=== PATIENT | female | born 1980 | race Caucasian/White ===

== ENCOUNTER 2016-11-22 13:45 | Emergency (ER) | payer OTHER ==
[~2016-11-22] VITALS: Ht 167.6 cm; Wt 135.5 kg
[2016-11-22] MEDS ORDERED: LORA10CA PO (14:05)
[2016-11-22] MEDS ORDERED: MULT1CHW26 PO (14:05)
[2016-11-22] MEDS ORDERED: IRON65TA PO (14:05)
[2016-11-22] MEDS ORDERED: TOPI200T7 PO (14:05)
[2016-11-22] MEDS ORDERED: GABA-283 PO (14:05)
[2016-11-22] MEDS ORDERED: OMEP40CA2 PO (14:05)
[2016-11-22] MEDS ORDERED: LISI10TA4 PO (14:05)
[2016-11-22] MEDS ORDERED: FLUO20CA8 PO (14:05)
[2016-11-22] MEDS ORDERED: MELO15TA4 PO (14:05)
[2016-11-22] MEDS ORDERED: BACL1TAB9 PO (14:05)
[2016-11-22] MEDS ORDERED: RANI15TA PO (14:05)
[2016-11-22] MEDS ORDERED: LEVO88TA3 PO (14:05)
[2016-11-22] MEDS ORDERED: ZYPR10TA PO (14:05)
[2016-11-22 15:29] LABS: BASO % 0.3 % (0.0-1.0); EOS # 0.5 K/mm3 (0.0-0.50); LARGE UNSTAINED CELL # 0.2 K/mm3 (0.0-0.4); LARGE UNSTAINED CELL % 1.5 % (0.0-4.0); LYMPH # 2.4 K/mm3 (1.5-4.5); LYMPH % 18.4 % (24.0-44.0); MEAN CORPUSCULAR HEMOGLOBIN 30.2 pg (27.0-33.0); MEAN CORPUSCULAR VOLUME 88.9 fl (80.0-96.0); MONO # 0.7 K/mm3 (0.0-0.8); MONO % 5.8 % (0.0-5.0); NEUTROPHILS # 8.3 K/mm3 (1.8-7.7); NEUTROPHILS % 69.9 % (36.0-66.0); PLATELET COUNT, AUTOMATED 228 k/mm3 (150-450); RED CELL DISTRIBUTION WIDTH 14.6 % (11.5-14.5); WHITE BLOOD COUNT 11.9 K/mm3 (4.0-10.0)
[2016-11-22 16:02] LABS: CONTROL LINE MONO INT CTR LINE PRESENT
[2016-11-22] MEDS ORDERED: AMOX500C PO (16:25)
[2016-11-22] MEDS ORDERED: CEPA5.4L2 MT (16:25)
[2016-11-22] MEDS ORDERED: AMOXICILLIN 500 MG CAP PO ONE (16:30)
[2016-11-22 16:35] VITALS: BP 143/98
== END 2016-11-22 16:35 | disposition home or self-care (01) ==
LOC: M ED 13:45
DX: J02.9 Acute pharyngitis, unspecified (principal)

== ENCOUNTER → 2018-09-02 | Outpatient (REF) | payer OTHER ==
[~2018-09-02] MED LIST: AMOX500C PO; BACL1TAB9 PO; CEPA5.4L2 MT; FLUO20CA8 PO; GABA-845 PO; IRON65TA PO; LEVO88TA3 PO; LISI10TA4 PO; LORA10CA PO; MELO15TA28 PO; MULT1CHW26 PO; OMEP40CA2 PO; RANI15TA PO; TOPI200T7 PO; ZYPR10TA PO
[2018-09-02 11:33] LABS: BASO # 0.1 10^3/uL (0.0-0.2); BASO % 0.7 % (0.0-1.0); EOS # 0.7 10^3/uL (0.0-0.50); EOS % 8.2 % (0.0-3.0); HEMOGLOBIN 9.9 g/dl (12.0-15.5); LYMPH # 2.1 10^3/uL (1.5-4.5); LYMPH % 25.1 % (24.0-44.0); MEAN CORPUSCULAR HEMOGLOBIN 19.8 pg (27.0-33.0); MEAN CORPUSCULAR HGB CONC 27.5 g/dl (32.0-36.5); MEAN CORPUSCULAR VOLUME 72.1 fl (80.0-96.0); MONO # 0.8 10^3/uL (0.0-0.8); NEUTROPHILS # 4.8 10^3/uL (1.8-7.7); NEUTROPHILS % 56.8 % (36.0-66.0); PLATELET COUNT, AUTOMATED 317 10^3/uL (150-450); RED BLOOD COUNT 4.99 10^6/uL (4.00-5.40); WHITE BLOOD COUNT 8.5 10^3/uL (4.0-10.0)
[2018-09-02 11:55] LABS: ALBUMIN 3.6 GM/DL (3.2-5.2); ALT/SGPT 35 U/L (12-78); BILIRUBIN,TOTAL 0.3 MG/DL (0.2-1.0); BLOOD UREA NITROGEN 12 MG/DL (7-18); CALCIUM LEVEL 8.4 MG/DL (8.5-10.1); CARBON DIOXIDE LEVEL 22 MEQ/L (21-32); CHLORIDE LEVEL 106 MEQ/L (98-107); CHOLESTEROL LEVEL 156 MG/DL (<200); CHOLESTEROL RISK RATIO 5.379 (<5); FERRITIN 19 NG/ML (8-252); FREE THYROXINE INDEX 2.7 % (1.3-4.8); GLOMERULAR FILTRATION RATE > 60.0 (>58); GLUCOSE, FASTING 76 MG/DL (70-100); HDL CHOLESTEROL 29 MG/DL (>40); IRON (FE) 27 UG/DL (50-170); LDL CHOLESTEROL 86.4 MG/DL (<100); NON-HDL-C 127 MG/DL; POTASSIUM SERUM 3.8 MEQ/L (3.5-5.1); SODIUM LEVEL 139 MEQ/L (136-145); T UPTAKE 32 % (30-39); THYROXINE (T4) 8.3 UG/DL (4.5-12.0); TOTAL IRON BINDING CAPACITY 299 UG/DL (250-450); TOTAL PROTEIN 7.7 GM/DL (6.4-8.2); TRIGLYCERIDES LEVEL 203 MG/DL (<150)
[2018-09-02 12:00] LABS: TOTAL 25(OH) VITAMIN D 18.4 NG/ML (30.0-100.0)
== END ==
LOC: M SFHCCLAY 08:48
PROVIDERS: ATTEND Nurse Practitioner Family
DX: D64.9 Anemia, unspecified (principal); I10 Essential (primary) hypertension; R25.2 Cramp and spasm; E03.9 Hypothyroidism, unspecified

== ENCOUNTER → 2018-09-13 | Outpatient (REF) | payer OTHER ==
[~2018-09-13] MED LIST changes: +FERR325T3; +QUET5TAB
[2018-09-13 13:40] LABS: BASO # 0.1 10^3/uL (0.0-0.2); BASO % 0.7 % (0.0-1.0); EOS # 0.7 10^3/uL (0.0-0.50); EOS % 9.5 % (0.0-3.0); HEMATOCRIT 40.5 % (36.0-47.0); HEMOGLOBIN 11.1 g/dl (12.0-15.5); LYMPH # 1.7 10^3/uL (1.5-4.5); LYMPH % 22.7 % (24.0-44.0); MEAN CORPUSCULAR HEMOGLOBIN 21.1 pg (27.0-33.0); MEAN CORPUSCULAR HGB CONC 27.4 g/dl (32.0-36.5); MONO # 0.6 10^3/uL (0.0-0.8); MONO % 8.1 % (0.0-5.0); NEUTROPHILS # 4.4 10^3/uL (1.8-7.7); NEUTROPHILS % 58.7 % (36.0-66.0); PLATELET COUNT, AUTOMATED 253 10^3/uL (150-450); RED BLOOD COUNT 5.26 10^6/uL (4.00-5.40); WHITE BLOOD COUNT 7.4 10^3/uL (4.0-10.0)
[2018-09-13 13:49] LABS: ALBUMIN 3.5 GM/DL (3.2-5.2); ALT/SGPT 27 U/L (12-78); BILIRUBIN,TOTAL 0.4 MG/DL (0.2-1.0); BLOOD UREA NITROGEN 11 MG/DL (7-18); CALCIUM LEVEL 8.6 MG/DL (8.5-10.1); CARBON DIOXIDE LEVEL 21 MEQ/L (21-32); CHLORIDE LEVEL 107 MEQ/L (98-107); CREATININE FOR GFR 0.57 MG/DL (0.55-1.30); GLOMERULAR FILTRATION RATE > 60.0 (>58); GLUCOSE, FASTING 81 MG/DL (70-100); POTASSIUM SERUM 3.8 MEQ/L (3.5-5.1); RHEUMATOID FACTOR QUANT < 10.0 IU/ML (<15.0); SODIUM LEVEL 140 MEQ/L (136-145); TOTAL 25(OH) VITAMIN D 23.5 NG/ML (30.0-100.0); TOTAL PROTEIN 7.6 GM/DL (6.4-8.2)
[2018-09-13 15:01] LABS: ANISOCYTOSIS 3+; POIKILOCYTOSIS 1+; TEAR DROP CELLS 1+
[2018-09-13 15:02] LABS: MICROCYTOSIS 1+; OVALOCYTES 1+
[2018-09-13 15:06] LABS: PLATELET ESTIMATE NORMAL (NORMAL)
[2018-09-13 19:47] LABS: ERYTHROCYTE SEDIMENTATION RATE 15 mm/hr (0-20)
[2018-09-14 14:11] LABS: ANTINUCLEAR ANTIBODIES DIRECT Negative (Negative)
== END ==
LOC: M LABDRAWC 09-12 11:38
PROVIDERS: ATTEND Psychiatry & Neurology Neurology
DX: R51 Headache (principal)

== ENCOUNTER 2018-09-28 17:13 | Emergency (ER) | payer OTHER ==
[~2018-09-28] VITALS: Ht 167.6 cm; Wt 126.9 kg
[~2018-09-28 17:13] MED LIST changes: -FERR325T3; -QUET5TAB
[2018-09-28] MEDS ORDERED: CHARCOAL ACTIVATED LIQUID 25 GM/120 ML BTL PO ONE (17:30)
[2018-09-28] MEDS ORDERED: NS 1,000 ML IV SCH (17:30)
[2018-09-28 17:38] LABS: VENOUS BASE EXCESS -7.7 (-2.0-2.0); VENOUS O2 SATURATION 73.8 % (60.0-80.0); VENOUS PARTIAL PRESSURE CO2 37.2 mmHg (38.0-50.0); VENOUS PARTIAL PRESSURE O2 45.5 mmHg (30.0-50.0); VENOUS PH 7.302 UNITS (7.330-7.430); VENOUS STANDARD HCO3 17.8 MEQ/L; VENOUS TOTAL CO2 19.1 MEQ/L (24.0-28.0)
[2018-09-28 17:39] LABS: BASO # 0.1 10^3/uL (0.0-0.2); BASO % 0.6 % (0.0-1.0); EOS # 0.5 10^3/uL (0.0-0.50); EOS % 5.7 % (0.0-3.0); HEMATOCRIT 40.1 % (36.0-47.0); LYMPH % 22.1 % (24.0-44.0); MEAN CORPUSCULAR HEMOGLOBIN 24.1 pg (27.0-33.0); MEAN CORPUSCULAR HGB CONC 29.9 g/dl (32.0-36.5); MEAN CORPUSCULAR VOLUME 80.7 fl (80.0-96.0); MONO # 0.7 10^3/uL (0.0-0.8); MONO % 7.8 % (0.0-5.0); NEUTROPHILS # 5.6 10^3/uL (1.8-7.7); NEUTROPHILS % 63.5 % (36.0-66.0); PLATELET COUNT, AUTOMATED 200 10^3/uL (150-450); RED BLOOD COUNT 4.97 10^6/uL (4.00-5.40); WHITE BLOOD COUNT 8.8 10^3/uL (4.0-10.0)
[2018-09-28 18:13] LABS: ACETAMINOPHEN LEVEL 51.7 UG/ML (10.0-30.0); ALBUMIN 3.7 GM/DL (3.2-5.2); ALT/SGPT 30 U/L (12-78); BILIRUBIN,DIRECT 0.1 MG/DL (0.0-0.2); BILIRUBIN,TOTAL 0.3 MG/DL (0.2-1.0); BLOOD UREA NITROGEN 9 MG/DL (7-18); CALCIUM LEVEL 8.6 MG/DL (8.5-10.1); CARBON DIOXIDE LEVEL 21 MEQ/L (21-32); CHLORIDE LEVEL 107 MEQ/L (98-107); CPK CREATINE PHOSPHOKINASE 128 U/L (26-192); CREATININE FOR GFR 0.62 MG/DL (0.55-1.30); ETHYL ALCOHOL (ETHANOL) < 0.003 % (0.000-0.010); GLOMERULAR FILTRATION RATE > 60.0 (>58); GLUCOSE, FASTING 77 MG/DL (70-100); POTASSIUM SERUM 3.6 MEQ/L (3.5-5.1); SALICYLATE LEVEL < 1.7 MG/DL (5.0-30.0); SODIUM LEVEL 141 MEQ/L (136-145); TOTAL PROTEIN 7.1 GM/DL (6.4-8.2)
[2018-09-28] MEDS ORDERED: FERR325T3 (18:19)
[2018-09-28] MEDS ORDERED: QUET5TAB (18:19)
[2018-09-28] MEDS ORDERED: NS 1,000 ML IV ONE (18:30)
[2018-09-28 18:45] LABS: AMPHETAMINES LEVEL URINE NEGATIVE (NEGATIVE); BARBITURATES URINE NEGATIVE (NEGATIVE); BENZODIAZEPINES URINE NEGATIVE (NEGATIVE); CANNABINOIDS URINE NEGATIVE (NEGATIVE); COCAINE METABOLITE URINE NEGATIVE (NEGATIVE); METHADONE URINE NEGATIVE (NEGATIVE); OPIATES URINE POSITIVE (NEGATIVE); PHENCYCLIDINE URINE NEGATIVE (NEGATIVE)
[2018-09-28] MEDS ORDERED: ACETYLCYSTEINE 15,000 MG in D5W 250 ML IV ONE (19:00)
[2018-09-28] MEDS ORDERED: ACETYLCYSTEINE 5,000 MG in D5W 500 ML IV ONE (20:00)
[2018-09-28] MEDS ORDERED: LORazepam 1 MG TAB PO ONE (22:30)
[2018-09-29 05:59] VITALS: BP 134/71
--- NOTE | 2018-09-29 07:25 | ECGEPIP ---
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
== END 2018-09-29 07:36 | disposition short-term general hospital (02) ==
LOC: M ED 17:13 → EDBD 17:13 → M ED 09-29 07:36
DX: F33.9 Major depressive disorder, recurrent, unspecified (principal); R45.851 Suicidal ideations; T50.992A Poisoning by other drugs, medicaments and biological substances, intentional self-harm, initial encounter; X58.XXXA Exposure to other specified factors, initial encounter; Y92.89 Other specified places as the place of occurrence of the external cause; I10 Essential (primary) hypertension; G43.909 Migraine, unspecified, not intractable, without status migrainosus; D64.9 Anemia, unspecified; K21.9 Gastro-esophageal reflux disease without esophagitis; F41.9 Anxiety disorder, unspecified; Z79.899 Other long term (current) drug therapy
CPT/HCPCS: 36415; 80048; 80076; 80307; 82550; 82803; 84443; 85025; 93005; 93041; 96361; 96365; 96366; 99285; G0480; J0132

== ENCOUNTER → 2018-10-11 | Outpatient (REF) | payer OTHER ==
[~2018-10-11] MED LIST changes: +FERR325T3; +QUET5TAB
[2018-10-11 17:06] LABS: ALBUMIN 3.5 GM/DL (3.2-5.2); ALT/SGPT 59 U/L (12-78); BILIRUBIN,DIRECT < 0.1 MG/DL (0.0-0.2); BILIRUBIN,TOTAL < 0.1 MG/DL (0.2-1.0); IRON (FE) 33 UG/DL (50-170); PERCENT SATURATION 11.1 % (13.2-45.0); TOTAL IRON BINDING CAPACITY 296 UG/DL (250-450); TOTAL PROTEIN 7.3 GM/DL (6.4-8.2)
[2018-10-11 17:47] LABS: HEMOGLOBIN 12.3 g/dl (12.0-15.5); MEAN CORPUSCULAR HEMOGLOBIN 25.4 pg (27.0-33.0); MEAN CORPUSCULAR VOLUME 84.7 fl (80.0-96.0); PLATELET COUNT, AUTOMATED 242 10^3/uL (150-450); RED BLOOD COUNT 4.84 10^6/uL (4.00-5.40)
== END ==
LOC: M SFHCCLAY 11:49
PROVIDERS: ATTEND Family Medicine
DX: D50.9 Iron deficiency anemia, unspecified (principal); T39.1X2D Poisoning by 4-Aminophenol derivatives, intentional self-harm, subsequent encounter

== ENCOUNTER 2018-10-25 11:31 | Inpatient (IN) | payer OTHER ==
[~2018-10-25] VITALS: Ht 167.6 cm; Wt 126.9 kg
[~2018-10-25 11:31] MED LIST changes: -FERR325T3; +FERR325T3 PO
[2018-10-25] MEDS ORDERED: VITA500045 PO (12:19)
[2018-10-25] MEDS ORDERED: PRAZ1CAP PO (12:19)
[2018-10-25] MEDS ORDERED: ZONI50CA3 PO (12:19)
[2018-10-25] MEDS ORDERED: ARIP1TAB6 PO (12:19)
[2018-10-25 13:06] LABS: HEMATOCRIT 41.1 % (36.0-47.0); HEMOGLOBIN 13.1 g/dl (12.0-15.5); MEAN CORPUSCULAR HEMOGLOBIN 26.4 pg (27.0-33.0); MEAN CORPUSCULAR HGB CONC 31.9 g/dl (32.0-36.5); MEAN CORPUSCULAR VOLUME 82.9 fl (80.0-96.0); PLATELET COUNT, AUTOMATED 232 10^3/uL (150-450); RED BLOOD COUNT 4.96 10^6/uL (4.00-5.40); WHITE BLOOD COUNT 11.1 10^3/uL (4.0-10.0)
[2018-10-25 13:36] LABS: AMPHETAMINES LEVEL URINE NEGATIVE (NEGATIVE); BARBITURATES URINE NEGATIVE (NEGATIVE); BENZODIAZEPINES URINE NEGATIVE (NEGATIVE); CANNABINOIDS URINE NEGATIVE (NEGATIVE); COCAINE METABOLITE URINE NEGATIVE (NEGATIVE); METHADONE URINE NEGATIVE (NEGATIVE); OPIATES URINE NEGATIVE (NEGATIVE); PHENCYCLIDINE URINE NEGATIVE (NEGATIVE)
[2018-10-25 13:44] LABS: HCG, SERUM QUALITATIVE NEGATIVE (NEGATIVE)
[2018-10-25 13:45] LABS: ALBUMIN 3.6 GM/DL (3.2-5.2); ALT/SGPT 42 U/L (12-78); BILIRUBIN,DIRECT 0.1 MG/DL (0.0-0.2); BILIRUBIN,TOTAL 0.2 MG/DL (0.2-1.0); BLOOD UREA NITROGEN 18 MG/DL (7-18); CARBON DIOXIDE LEVEL 24 MEQ/L (21-32); CHLORIDE LEVEL 107 MEQ/L (98-107); CREATININE FOR GFR 0.65 MG/DL (0.55-1.30); ETHYL ALCOHOL (ETHANOL) < 0.003 % (0.000-0.010); GLOMERULAR FILTRATION RATE > 60.0 (>58); GLUCOSE, FASTING 88 MG/DL (70-100); POTASSIUM SERUM 3.7 MEQ/L (3.5-5.1); SALICYLATE LEVEL < 1.7 MG/DL (5.0-30.0); SODIUM LEVEL 140 MEQ/L (136-145); TOTAL PROTEIN 7.7 GM/DL (6.4-8.2)
[2018-10-25 13:46] LABS: ACETAMINOPHEN LEVEL < 2.0 UG/ML (10.0-30.0)
[2018-10-25] MEDS ORDERED: TOPI50TA9 PO (15:18)
[2018-10-25] MEDS ORDERED: LISI-538 PO (15:18)
[2018-10-25] MEDS ORDERED: QUET1TAB7 PO (15:18)
[2018-10-25] MEDS ORDERED: HYDR2.5C TOP (15:19)
[2018-10-25] MEDS ORDERED: FLON1SPR (15:19)
[2018-10-25] MEDS ORDERED: OYST500T10 PO (15:19)
[2018-10-25] MEDS ORDERED: ZONI25CA2 PO (15:19)
[2018-10-25] MEDS ORDERED: LORA-674 PO (15:19)
[2018-10-25] MEDS ORDERED: KETO2SHA9 TOP (15:19)
[2018-10-25] MEDS ORDERED: ESCI20TA PO (15:19)
[2018-10-25] MEDS ORDERED: OLANZapine ORAL DISINTEGRATING TAB 5MG PO PRN (17:00)
[2018-10-25] MEDS ORDERED: MAALOX 30 ML SUSP *UDC PO PRN (17:00)
[2018-10-25] MEDS ORDERED: MOM 30ML SUSPENSION UDC PO PRN (17:00)
[2018-10-25 17:56] VITALS: BP 146/75
[2018-10-25] MEDS: OMEPRAZOLE 20 MG CAP PO SCH (20:50)
[2018-10-25] MEDS: FERROUS SULFATE 325MG TAB PO SCH (20:50)
[2018-10-25] MEDS: GABAPENTIN 400 MG CAP PO SCH (20:51)
[2018-10-25] MEDS: QUEtiapine FUMARATE 50 MG TAB PO SCH (20:51)
[2018-10-25] MEDS: NYSTATIN OINTMENT 15 GM TOP SCH (21:00)
[2018-10-25] MEDS ORDERED: FLUTICASONE PROP 0.05% NASAL SPRAY 16 GM (FLONASE) NARES SCH (21:00)
[2018-10-25] MEDS ORDERED: TOPIRAMATE (TopAMAX) 100 MG TAB PO SCH (21:00)
[2018-10-25] MEDS ORDERED: PRAZOSIN 1 MG CAP PO SCH (21:00)
[2018-10-25] MEDS ORDERED: LISINOPRIL 20 MG TAB PO SCH (21:00)
[2018-10-26] MEDS: LEVOTHYROXINE 88MCG TABLET (0.088 MG) PO SCH (06:00)
[2018-10-26 06:41] VITALS: BP 109/68
[2018-10-26] MEDS: NYSTATIN OINTMENT 15 GM TOP SCH ×2 (08:09→21:00)
[2018-10-26] MEDS: LORATADINE 10 MG TAB PO SCH (08:13)
[2018-10-26] MEDS: GABAPENTIN 400 MG CAP PO SCH ×3 (08:13→21:05)
[2018-10-26] MEDS: FERROUS SULFATE 325MG TAB PO SCH ×3 (08:13→21:05)
[2018-10-26] MEDS: MULTIVITAMINS/MINERALS THERAP 1 TAB PO SCH (08:13)
[2018-10-26] MEDS: OYSTER SHELL CALCIUM 500 MG TAB PO SCH (08:13)
[2018-10-26] MEDS: OMEPRAZOLE 20 MG CAP PO SCH ×2 (08:13→21:05)
[2018-10-26] MEDS: LISINOPRIL 20 MG TAB PO SCH (08:13)
[2018-10-26] MEDS: ESCITALOPRAM OXALATE 10 MG TAB (LEXAPRO) PO SCH (08:14)
[2018-10-26] MEDS: MELOXICAM (MOBIC) 7.5 MG TAB PO SCH (08:14)
[2018-10-26] MEDS ORDERED: VITAMIN D 50,000 UNITS CAPSULE (ERGOCALCIFEROL 1.25MG) PO SCH (09:00)
[2018-10-26] MEDS: FLUTICASONE PROP 0.05% NASAL SPRAY 16 GM (FLONASE) NARES SCH (15:29)
--- NOTE | 2018-10-26 16:28 | HPEPDOC ---
[facility] Medical History & Physical Date of Admission Oct 25, 2018 Date of Service: Oct 26, 2018 History and Physical CHIEF COMPLAINT: Anxiety, panic HISTORY OF PRESENT ILLNESS: This is a 38-year-old female who has had escalating anxiety. She apparently had a severe panic episode as a result and has been ad mitted to the mental health unit. PAST MEDICAL HISTORY: Migraine headaches, chronic back pain, degenerative disc disease with sciatica, esophageal reflux disease, hypothyroidism, iron deficiency anemia, hypertension, depression with anxiety features, irregular menses PAST SURGICAL HISTORY: Cholecystectomy, carpal tunnel decompression to the right hand SOCIAL HISTORY: She denies any history of alcohol or tobacco consumption. She also denies history of illicit substances. She is classified as disabled due to her chronic back pain. FAMILY HISTORY: There is maternal and paternal history of tobacco use. There is maternal history of diabetes, hypertension and breast cancer. There is paternal history of COPD. ALLERGIES: Please see below. REVIEW OF SYSTEMS: Review of 10 systems is otherwise negative except as stated in the brief presentation HOME MEDICATIONS: Please see below. PHYSICAL EXAMINATION: VITAL SIGNS: The patient is afebrile. Systolic blood pressures range from 136- 148. Respiratory rate is 12-18. Heart rate is 85. O2 sats are 98-100% on room air. GENERAL APPEARANCE: Alert, cooperative, morbidly obese, hirsute. HEENT: Neck is supple with no adenopathy or thyromegaly, oral mucosa is moist, good dentition, normal tympanic membranes, No scleral icterus or injection. CARDIOVASCULAR: Regular rate and rhythm with a normal S1 and S2 and no appreciable murmur or bruit. LUNGS: Clear to auscultation with no rhonchi, rales, wheezes or cough. ABDOMEN: Soft, nontender, nondistended but with morbid central obesity, bowel tones are present. MUSCULOSKELETAL: No peripheral edema, pedal pulses are readily palpable, patient does have some tenderness to her lumbar vertebral spine. NEUROLOGICAL: No focal neuromotor or sensory deficit.. PSYCHIATRIC: Patient is calm, but depressed. LABORATORY DATA: See below. IMAGING: MICROBIOLOGY: Please see below. ASSESSMENT/PLAN : 1. Migraine headaches--she'll continue on her current prophylactic and treatment medications. We have discussed evaluating for food and environmental triggers. 2. Degenerative disc disease--she can continue on her current medications inclusive of Neurontin and meloxicam. 3. Hypothyroidism--patient states she is stable on her Synthroid. 4. Essential hypertension--patient will continue on her current lisinopril and prazosin. 5. Iron deficiency anemia--patient will continue on her current ferrous sulfate. 6. Irregular menses--the patient states that she is following up with subspecialists recommended by her PCP for further evaluation and management. Given the patient's body habitus she may have polycystic ovary syndrome. 7. The patient has depression with severe anxiety features. Management of her psych meds will be deferred to the mental health department.. The patient is otherwise medically stable and does not require active medical management. However, please do reconsult if acute medical needs arise. . Vital Signs Vital Signs Date Time Temp Pulse Resp B/P (MAP) Pulse Ox O2 Delivery O2 Flow Rate FiO2 10/26/18 08:13 140/98 10/26/18 06:41 98.2 80 12 10/25/18 17:56 98 10/25/18 12:01 Room Air Home Medications Scheduled Aripiprazole (Aripiprazole) 5 Mg Tablet, 5 MG PO DAILY Calcium Carbonate/Vitamin D3 (Oyster Shell 500-Vit D3 200 Tb) 1 Each Tablet, 1 TAB PO DAILY Ergocalciferol (Vitamin D2) (Vitamin D2) 50,000 Unit Capsule, 50,000 UNIT PO QWEEK WEDNESDAYS Escitalopram Oxalate (Escitalopram Oxalate) 20 Mg Tablet, 20 MG PO DAILY Ferrous Sulfate (Ferrous Sulfate) 325 Mg Tablet.dr, 325 MG PO TID Fluticasone Propionate (Flonase Allergy Relief) 9.9 Ml [place].susp, 2 SPRAY NA DAILY TAKES AROUND NOON Gabapentin (Gabapentin) 400 Mg Cap, 400 MG PO TID Levothyroxine Sodium (Levothyroxine Sodium) 88 Mcg Tab, 88 MCG PO DAILY Lisinopril (Lisinopril) 20 Mg Tablet, 20 MG PO DAILY Loratadine (Loratadine) 10 Mg Tablet, 10 MG PO DAILY Meloxicam (Meloxicam) 15 Mg Tab, 15 MG PO DAILY Multivit-Minerals/Folic Acid (Adult Multi Gummies) 1 Chw Chw, 1 CHW PO DAILY Omeprazole (Omeprazole) 40 Mg Cap, 40 MG PO BID Prazosin Hcl (Prazosin HCl) 1 Mg Capsule, 1 MG PO QHS Quetiapine Fumarate (Quetiapine Fumarate) 25 Mg Tablet, 50 MG PO QHS Ranitidine Hcl (Ranitidine HCl) 150 Mg Tab, 1 TAB PO BID Topiramate (Topiramate) 50 Mg Tablet, 25 MG PO QHS PATIENT IS TAPERING OFF THIS MEDICATION AND STARTING ZONISAMIDE Zonisamide (Zonisamide) 25 Mg Capsule, 25 MG PO BID TAPERING UP. 25MG BID FOR 1 WEEK, 25MG QAM AND 50MG QHS FOR ONE WEEK, THEN 50MG BID FOR FINAL DOSE TO CONTINUE Scheduled PRN Hydrocortisone (Hydrocortisone) 453.6 Gm Cream..g., 1 DOSE TOP DAILY PRN for RASH/ITCHING APPLY TO NECK Ketoconazole (Ketoconazole) 120 Ml Shampoo, 1 DOSE TOP DAILY PRN for DRY SCALP Allergies Coded Allergies: No Known Allergies (Unverified , 11/22/16) MEKHI ROBLERO MD Oct 26, 2018 16:28
[2018-10-26 18:21] VITALS: BP 136/86
[2018-10-26] MEDS: ACETAMINOPHEN TAB 650MG DOSE (2X325MG) PO PRN (19:29)
[2018-10-26] MEDS: QUEtiapine FUMARATE 50 MG TAB PO SCH (21:05)
[2018-10-27] MEDS: LEVOTHYROXINE 88MCG TABLET (0.088 MG) PO SCH (05:53)
[2018-10-27 06:45] VITALS: BP 131/72
[2018-10-27] MEDS: NYSTATIN OINTMENT 15 GM TOP SCH ×2 (08:31→20:41)
[2018-10-27] MEDS: LORATADINE 10 MG TAB PO SCH (08:35)
[2018-10-27] MEDS: OYSTER SHELL CALCIUM 500 MG TAB PO SCH (08:35)
[2018-10-27] MEDS: ESCITALOPRAM OXALATE 10 MG TAB (LEXAPRO) PO SCH (08:35)
[2018-10-27] MEDS: FERROUS SULFATE 325MG TAB PO SCH ×3 (08:35→20:40)
[2018-10-27] MEDS: MULTIVITAMINS/MINERALS THERAP 1 TAB PO SCH (08:35)
[2018-10-27] MEDS: MELOXICAM (MOBIC) 7.5 MG TAB PO SCH (08:35)
[2018-10-27] MEDS: LISINOPRIL 20 MG TAB PO SCH (08:35)
[2018-10-27] MEDS: GABAPENTIN 400 MG CAP PO SCH ×3 (08:36→20:41)
[2018-10-27] MEDS: OMEPRAZOLE 20 MG CAP PO SCH ×2 (08:36→20:41)
[2018-10-27] MEDS: FLUTICASONE PROP 0.05% NASAL SPRAY 16 GM (FLONASE) NARES SCH (12:10)
[2018-10-27] MEDS: ACETAMINOPHEN TAB 650MG DOSE (2X325MG) PO PRN ×2 (15:44→22:18)
[2018-10-27 18:09] VITALS: BP 136/73
--- NOTE | 2018-10-27 19:29 | MHHPEPDOC ---
General Date Of Admission: Oct 25, 2018 Legal Status: 9.39 Chief Complaint PATIENT WAS EXPERIENCING A PANIC ATTACK AND SHE FEARED AHE WOULD LOSE CONTROL AND OVERDOSE ONCE AGAIN LIKE SHE DID ON SEPTEMBER 28. History of Present Illness HISTORY OF THE PRESENT ILLNESS: Patient is a 38 -year-old , female, who as per ED report: "Reason for Referral * PT is +SI with plan to OD Chief Complaint PT states that September 28 she overdosed to kill herself. She had been messaging with her brother and then she suddenly became overwhelmed with depression and she ingested 59 hydrocodone. PT can't remeber all the details to include how 911 was called. PT was transferred to [place] for inpatient due to [facility] being at capacity. PT states she has been doing well since her return from the hospital but this morning she woke up and felt the same way she ahd felt right before she tried to kill herself. PT attempted to see her PCP and was asked to come back at 3:30 today. PT then called her therapist who called 911 per PT. PT states that there is little difference in how she feels today as opposed to 09/28 so she is now scared she will again attempt suicide "It came on me so fast last time" At this pint PT has begun to cry and reassurance was provided. PT lives alone and she moved to this are 1 year ago to be closer to her brother and CANDIDA. She states due to anxiety she did not reach out for a therapist until a few months ago. PT states she suffers with depression and anxiety. PT does not speak to anyone on daily basis and if she were to not leave her apartment "Someone would probably notice after a couple days". PT cannot CFS at this time." Psychiatric Review of Systems Depression (2 or more weeks): depressed mood (she has felt sad since a few weeks ago but before, she sys she was really depressed (September 29.)), insomnia/hypersomnia, feelings of worthlesness ("i have low self esteem"), decreased energy, difficulty concentrating, psychomotor changes, suicidal thoughts (Yesterdy she didn't. the last time was in September 29.), other (she feels helpless since her back startd getting worse) Brian (4 or more days of): expansive mood, decreased need for sleep, still with energy (The last time was probably over a month go), talkativity, pressured, flight of ideas, distractibility, goal-directed activities, other (she says from . until september 29. sh was eeling "very energetic' and then "that depression just hit me, it seemed like it came out of nowhere 9on september 29)") Psychosis: denies PTSD: denies Anxiety: gen/non-specific anxiety, situational anxiety, stressor related anxiety, panic attacks Anxiety/ 6 months or more of: restlessness, keyed up, easily fatigued, difficulty concentrating, irritability, muscle tension, sleep disturbance Past Psychiatric History Previous Psychiatric Diagnosis: major Depressive Disorder and anxiety disorder Previous Psychiatric Admissions: Last month, in [facility] Suicide Attempts: She took an intentional overdose on September 292018 and she took hydrocodone/acetaminophen Psychiatric Follow-up: [facility]. she's scheduled to see Dr. Cash and she hs met with Marychuy Psychiatric medications: Celexa, Abilify, Gabapentin, Seroquel and Prazosin Past Medical History Medical Problems degenerative disk disease and sciatica, GERD, migraines, HTN, hypothyroidism, anemia and vitamin D deficiency Head Injury: No Seizures: No Hospitalizations: Yes Surgeries: Yes (carpal tunnel syndrome, tendinitis (corrected0 and cholecystectomy) Family Medical/Psychiatric HX Psychiatric Disorders: Yes (Estranged brother "says that he has bipolar") Addiction: No Suicide Attemps/Completions: No Addiction History alcohol (occasionally, for New Year's) Social History Childhood: it was good, she had a "normal" relationship with his older brothers, grew up with mom and dad. she didn't like going to school, she was harassed by other children. Abuse/Trauma: she says she was picked on by other children in school because her family didn't have enough money, she couldn't dress like the other children that had money and she a shy Current Living Situation: Lives by herself Education: finished HS Employment: Disability Social Support: her sister in law or her rn case manager hospicetool crib manager: Denies Marital: Single, no children. Mental Status Examination General Appearance: well groomed, ds/not appear stated age (SHE IS OVERWIGHT), hospital scubs/clothing Build: overweight Demeanor: average Eye Contact: average Activity: average Behavior: cooperative Speech: clear, spontaneous, reg/rate,rhythm,volume Mood: depressed, anxious Affect: full, appropriate, congruent, anxious, other (SAD) Thought Process: logical/linear Thought Content (Delusions): none reported Thought Content (Other): none reported Thought Content (Aggressive): none reported Perception (Hallucinations): none reported Perception (Other): none reported Cognition (Impairment of): none reported Cognition(Intelligence Est.): average Oriented: Awake, Alert, Oriented times three Insight: fair Judgment: Fair Psychosis: Denies Diagnoses 1. Unspecified mood disorder, r/o bipolar disorder 2. Generalized anxiety diosrder 3. Panic attacks A-FIB/CHADSVASC A-FIB History Current/History of A-Fib/PAF?: No Current PO Anticoag Therapy: No Age/Risk Factor Scoring CHADSVASC: CHADSVASC Response (Comments) Value Age Risk Factor Age < 65 years old 0 Gender Risk Factor Female 1 Hx of CHF No 0 Hx of HTN No 0 Hx of Stroke/TIA/or VTE No 0 Hx of Diabetes No 0 Hx of Vascular Disease No 0 Total 1 Treatment Treatment ordered: NONE Reason Anticoagulant not given: Not indicated/[id number] Assessment The patient is pleasant and cooperative, she is anxious and sad, not exactly depressed. she reports symptoms of brian approximately one montha go but she has not been diagnosed with it. She has a brother with h/o bipolar disorder Initial Treatment Plan 1. Patient was admitted on a [9.39] status. 2. Complete history was obtained. 3. With patients permission, family will be contacted and database will be expanded. 4. Patients medication regimen will be reviewed and changed accordingly. 5. Patient will be provided with protected environment. 6. Patient will be treated with individual, group, and milieu therapies. 7. Patient will receive supportive psych-education. 8. Discharge planning will commence immediately. 9. Outpatient follow-up treatment will be strongly recommended. 10. The initial treatment plan will focus initially on: * Depression. * Anxiety * Risk for suicide. * Substance abuse. ESTIMATED LENGTH OF STAY: 5-7 DAYS. TIME SPENT COUNSELING AND COORDINATING INITIAL CARE: 60 minutes. Vital Signs Vital Signs Date Time Temp Pulse Resp B/P (MAP) Pulse Ox O2 Delivery O2 Flow Rate FiO2 10/26/18 08:13 140/98 10/26/18 06:41 98.2 80 12 10/25/18 17:56 98 10/25/18 12:01 Room Air Medications Scheduled Aripiprazole (Aripiprazole) 5 Mg Tablet, 5 MG PO DAILY, (Reported) Calcium Carbonate/Vitamin D3 (Oyster Shell 500-Vit D3 200 Tb) 1 Each Tablet, 1 TAB PO DAILY, (Reported) Ergocalciferol (Vitamin D2) (Vitamin D2) 50,000 Unit Capsule, 50,000 UNIT PO QWEEK, (Reported) WEDNESDAYS Escitalopram Oxalate (Escitalopram Oxalate) 20 Mg Tablet, 20 MG PO DAILY, (Reported) Ferrous Sulfate (Ferrous Sulfate) 325 Mg Tablet.dr, 325 MG PO TID, (Reported) Fluticasone Propionate (Flonase Allergy Relief) 9.9 Ml [place].susp, 2 SPRAY NA DAILY, (Reported) TAKES AROUND NOON Gabapentin (Gabapentin) 400 Mg Cap, 400 MG PO TID, (Reported) Levothyroxine Sodium (Levothyroxine Sodium) 88 Mcg Tab, 88 MCG PO DAILY, (Reported) Lisinopril (Lisinopril) 20 Mg Tablet, 20 MG PO DAILY, (Reported) Loratadine (Loratadine) 10 Mg Tablet, 10 MG PO DAILY, (Reported) Meloxicam (Meloxicam) 15 Mg Tab, 15 MG PO DAILY, (Reported) Multivit-Minerals/Folic Acid (Adult Multi Gummies) 1 Chw Chw, 1 CHW PO DAILY, (Reported) Omeprazole (Omeprazole) 40 Mg Cap, 40 MG PO BID, (Reported) Prazosin Hcl (Prazosin HCl) 1 Mg Capsule, 1 MG PO QHS, (Reported) Quetiapine Fumarate (Quetiapine Fumarate) 25 Mg Tablet, 50 MG PO QHS, (Reported) Ranitidine Hcl (Ranitidine HCl) 150 Mg Tab, 1 TAB PO BID, (Reported) Topiramate (Topiramate) 50 Mg Tablet, 25 MG PO QHS, (Reported) PATIENT IS TAPERING OFF THIS MEDICATION AND STARTING ZONISAMIDE Zonisamide (Zonisamide) 25 Mg Capsule, 25 MG PO BID, (Reported) TAPERING UP. 25MG BID FOR 1 WEEK, 25MG QAM AND 50MG QHS FOR ONE WEEK, THEN 50MG BID FOR FINAL DOSE TO CONTINUE Scheduled PRN Hydrocortisone (Hydrocortisone) 453.6 Gm Cream..g., 1 DOSE TOP DAILY PRN for RASH/ITCHING, (Reported) APPLY TO NECK Ketoconazole (Ketoconazole) 120 Ml Shampoo, 1 DOSE TOP DAILY PRN for DRY SCALP, (Reported) Allergies Coded Allergies: No Known Allergies (Unverified , 11/22/16) TATYANA HERNANDEZ MD Oct 26, 2018 14:36
[2018-10-27] MEDS: QUEtiapine FUMARATE 50 MG TAB PO SCH (20:41)
[2018-10-28] MEDS: LEVOTHYROXINE 88MCG TABLET (0.088 MG) PO SCH (05:47)
[2018-10-28 07:04] VITALS: BP 132/60
[2018-10-28] MEDS: ACETAMINOPHEN TAB 650MG DOSE (2X325MG) PO PRN ×2 (07:35→20:55)
[2018-10-28] MEDS: NYSTATIN OINTMENT 15 GM TOP SCH ×2 (08:56→20:18)
[2018-10-28] MEDS: OYSTER SHELL CALCIUM 500 MG TAB PO SCH (08:59)
[2018-10-28] MEDS: GABAPENTIN 400 MG CAP PO SCH ×3 (08:59→20:19)
[2018-10-28] MEDS: OMEPRAZOLE 20 MG CAP PO SCH ×2 (09:00→20:19)
[2018-10-28] MEDS: MELOXICAM (MOBIC) 7.5 MG TAB PO SCH (09:01)
[2018-10-28] MEDS: LORATADINE 10 MG TAB PO SCH (09:01)
[2018-10-28] MEDS: ESCITALOPRAM OXALATE 10 MG TAB (LEXAPRO) PO SCH (09:01)
[2018-10-28] MEDS: FERROUS SULFATE 325MG TAB PO SCH ×3 (09:01→20:20)
[2018-10-28] MEDS: MULTIVITAMINS/MINERALS THERAP 1 TAB PO SCH (09:01)
[2018-10-28] MEDS: LISINOPRIL 20 MG TAB PO SCH (09:01)
[2018-10-28] MEDS: FLUTICASONE PROP 0.05% NASAL SPRAY 16 GM (FLONASE) NARES SCH (12:25)
[2018-10-28] MEDS ORDERED: PROPRANOLOL 10 MG TAB PO PRN (13:00)
[2018-10-28 18:11] VITALS: BP 120/73
[2018-10-28] MEDS: QUEtiapine FUMARATE 50 MG TAB PO SCH (20:19)
--- NOTE | 2018-10-28 22:51 | MHIPNPDOC ---
[facility] Progress Note Progress Note DATE OF SERVICE: 10/27/18 HISTORY: HISTORY OF THE PRESENT ILLNESS: Patient is a 38 -year-old , female, who as per ED report: "Reason for Referral * PT is +SI with plan to OD Chief Complaint PT states that September 28 she overdosed to kill herself. She had been messaging with her brother and then she suddenly became overwhelmed with depression and she ingested 59 hydrocodone. PT can't remeber all the details to include how 911 was called. PT was transferred to [place] for inpatient due to [facility] being at capacity. PT states she has been doing well since her return from the hospital but this morning she woke up and felt the same way she ahd felt right before she tried to kill herself. PT attempted to see her PCP and was asked to come back at 3:30 today. PT then called her therapist who called 911 per PT. PT states that there is little difference in how she feels today as opposed to 09/28 so she is now scared she will again attempt suicide "It came on me so fast last time" At this pint PT has begun to cry and reassurance was provided. PT lives alone and she moved to this are 1 year ago to be closer to her brother and CANDIDA. She states due to anxiety she did not reach out for a therapist until a few months ago. PT states she suffers with depression and anxiety. PT does not speak to anyone on daily basis and if she were to not leave her apartment "Someone would probably notice after a couple days". PT cannot CFS at this time." VITAL SIGNS: See below. NEW TEST RESULTS: See below CURRENT MEDICATIONS: See below. MENTAL STATUS EXAMINATION: General Appearance: well groomed, dressed in personal clothes, pleasant Build: overweight Demeanor: pleasant, cooperative Eye Contact: good Activity: calm, no psychomotor agitation or retardation observed Behavior: cooperative Speech: clear, spontaneous, reg/rate,rhythm,volume Mood: less depressed, less anxious Affect: full, appropriate, congruent, anxious, Thought Process: logical/linear Thought Content (Delusions): none reported Thought Content (Other): denies SI/HI/AV hallucinations Thought Content (Aggressive): none reported Perception (Hallucinations): none reported Perception (Other): none reported Cognition (Impairment of): none reported Cognition(Intelligence Est.): average Oriented: Awake, Alert, Oriented times three Insight: fair Judgment: Fair Psychosis: Denies Diagnoses 1. Unspecified mood disorder, r/o bipolar disorder 2. Generalized anxiety diosrder 3. Panic attacks ASSESSMENT: The patient is concerned about having more panic attacks. We discussed about the possibility of initiating treatment with Propranolol PRN in case of having another episode(s). We talked about breathing techniques, about meditation, yoga and breathing in a paper bag (during a panic attack). She said she is going to attend the yoga and meditation groups. MANAGEMENT PLAN: Will start tomorrow on Propranolol 10 mgs PO TIDP TIME SPENT: 30 minutes. Vital Signs Vital Signs Date Time Temp Pulse Resp B/P (MAP) Pulse Ox O2 Delivery O2 Flow Rate FiO2 10/27/18 18:09 98.2 99 16 136/73 (94) 10/25/18 17:56 98 10/25/18 12:01 Room Air Current Medications Current Medications Acetaminophen (Tylenol Tab) 650 mg Q6HP PRN PO HEADACHE or DISCOMFORT Last administered on 10/27/18at 15:44; Start 10/25/18 at 17:00 Al Hydrox/Mg Hydrox/Simethicone (Mylanta) 30 ml Q4HP PRN PO HEARTBURN/INDIGESTION; Start 10/25/18 at 17:00 Aripiprazole (AbiLIFY) 5 mg DAILY PO ; Start 10/26/18 at 09:00; Stop 10/26/18 at 09:00; Status DC Aripiprazole (AbiLIFY) 5 mg DAILY PO Last administered on 10/26/18at 08:13; Start 10/26/18 at 09:00; Stop 10/26/18 at 14:42; Status DC Aripiprazole (AbiLIFY) 5 mg QHS PO ; Start 10/27/18 at 21:00 Calcium Carbonate (Oscal) 1,000 mg DAILY PO Last administered on 10/27/18at 08: 35; Start 10/26/18 at 09:00 Escitalopram Oxalate (Lexapro) 20 mg DAILY PO Last administered on 10/27/18at 08:35; Start 10/26/18 at 09:00 Ferrous Sulfate (Ferrous Sulfate) 325 mg TID PO Last administered on 10/27/18at 15:44; Start 10/25/18 at 21:00 Fluticasone Propionate (Flonase 0.05% Nasal [place]) 1 spray BID NARES ; Start 10/25/18 at 21:00; Stop 10/25/18 at 21:00; Status DC Fluticasone Propionate (Flonase 0.05% Nasal [place]) 2 spray DAILY@1200 NARES Last administered on 10/27/18at 12:10; Start 10/26/18 at 12:00 Gabapentin (Neurontin) 400 mg TID PO Last administered on 10/27/18at 15:44; Start 10/25/18 at 21:00 Home Med (Med Rec Complete!) ASDIRECTED XX ; Start 10/25/18 at 15:30; Stop 10/25/18 at 15:34; Status DC Levothyroxine Sodium (Synthroid) 88 mcg DAILY@06 PO Last administered on 10/27/18at 05:53; Start 10/26/18 at 06:00 Lisinopril (Prinivil) 20 mg DAILY PO Last administered on 10/27/18 08:35; Start 10/26/18 at 09:00 Lisinopril (Prinivil) 20 mg QHS PO ; Start 10/25/18 at 21:00; Stop 10/25/18 at 21:00; Status DC Loratadine (Claritin) 10 mg DAILY PO Last administered on 10/27/18at 08:35; Start 10/26/18 at 09:00 Magnesium Hydroxide (Milk Of Magnesia) 30 ml DAILYPRN PRN PO CONSTIPATION; Start 10/25/18 at 17:00 Meloxicam (Mobic) 15 mg DAILY PO Last administered on 10/27/18at 08:35; Start 10/26/18 at 09:00 Multivitamins (Theragram-M) 1 tab DAILY PO Last administered on 10/27/18at 0 8:35; Start 10/26/18 at 09:00 Nystatin (Mycostatin) apply to skin fold at nape... BID TOP ; Start 10/25/18 at 21:00 Olanzapine (ZyPREXA ZYDIS) 5 mg Q6HP PRN PO ANXIETY/AGITATION; Start 10/25/18 at 17:00 Omeprazole (PriLOSEC) 40 mg BID PO Last administered on 10/27/18at 08:36; Start 10/25/18 at 21:00 Prazosin HCl (Minipress) 1 mg QHS PO Last administered on 10/25/18at 20:51; S tart 10/25/18 at 21:00; Stop 10/26/18 at 14:42; Status DC Quetiapine Fumarate (SEROquel) 50 mg QHS PO Last administered on 10/26/18at 21:05; Start 10/25/18 at 21:00 Topiramate (TopAMAX) 150 mg BID PO ; Start 10/25/18 at 21:00; Status UNV Trazodone HCl (Desyrel) 50 mg QHSP PRN PO INSOMNIA; Start 10/25/18 at 17:00 Vitamin D (Drisdol) 50,000 units We@09 PO Last administered on 10/26/18at 08:13; Start 10/26/18 at 09:00 Allergies Coded Allergies: No Known Allergies (Unverified , 11/22/16) TATYANA HERNANDEZ MD Oct 27, 2018 19:30
--- NOTE | 2018-10-28 22:55 | MHIPNPDOC ---
[facility] Progress Note Progress Note DATE OF SERVICE: 10/28/18 HISTORY: HISTORY OF THE PRESENT ILLNESS: Patient is a 38 -year-old , female, who as per ED report: "Reason for Referral * PT is +SI with plan to OD Chief Complaint PT states that September 28 she overdosed to kill herself. She had been messaging with her brother and then she suddenly became overwhelmed with depression and she ingested 59 hydrocodone. PT can't remeber all the details to include how 911 was called. PT was transferred to [place] for inpatient due to [facility] being at capacity. PT states she has been doing well since her return from the hospital but this morning she woke up and felt the same way she ahd felt right before she tried to kill herself. PT attempted to see her PCP and was asked to come back at 3:30 today. PT then called her therapist who called 911 per PT. PT states that there is little difference in how she feels today as opposed to 09/28 so she is now scared she will again attempt suicide "It came on me so fast last time" At this pint PT has begun to cry and reassurance was provided. PT lives alone and she moved to this are 1 year ago to be closer to her brother and CANDIDA. She states due to anxiety she did not reach out for a therapist until a few months ago. PT states she suffers with depression and anxiety. PT does not speak to anyone on daily basis and if she were to not leave her apartment "Someone would probably notice after a couple days". PT cannot CFS at this time." VITAL SIGNS: See below. NEW TEST RESULTS: See below CURRENT MEDICATIONS: See below. MENTAL STATUS EXAMINATION: General Appearance: well groomed, dressed in personal clothes, pleasant Build: overweight Demeanor: pleasant, cooperative Eye Contact: good Activity: calm, no psychomotor agitation or retardation observed Behavior: cooperative Speech: clear, spontaneous, reg/rate,rhythm,volume Mood: less depressed, less anxious Affect: full, appropriate, congruent, anxious, Thought Process: logical/linear Thought Content (Delusions): none reported Thought Content (Other): denies SI/HI/AV hallucinations Thought Content (Aggressive): none reported Perception (Hallucinations): none reported Perception (Other): none reported Cognition (Impairment of): none reported Cognition(Intelligence Est.): average Oriented: Awake, Alert, Oriented times three Insight: fair Judgment: Fair Psychosis: Denies Diagnoses 1. Unspecified mood disorder, r/o bipolar disorder 2. Generalized anxiety diosrder 3. Panic attacks ASSESSMENT: The patient's mental status exam has not changed much from yesterday. She hasn't had a panic attack, she will start Propranolol 10 mgs PO TIDP for anxiety/agitation. She tried going to yoga today but the group had been cancelled, she will go to meditation. I showed her that [employer] has yoga videos and we explored Yoga for people with disabilities and there's videos targeted for this population, she is happy that there's options. Her mood and affect are brighter, she is calmer. MANAGEMENT PLAN: Will start tomorrow on Propranolol 10 mgs PO TIDP TIME SPENT: 30 minutes. Vital Signs Vital Signs Date Time Temp Pulse Resp B/P (MAP) Pulse Ox O2 Delivery O2 Flow Rate FiO2 10/28/18 18:11 98.6 93 16 120/73 (89) 10/25/18 17:56 98 10/25/18 12:01 Room Air Current Medications Current Medications Acetaminophen (Tylenol Tab) 650 mg Q6HP PRN PO HEADACHE or DISCOMFORT Last administered on 10/28/18at 20:55; Start 10/25/18 at 17:00 Al Hydrox/Mg Hydrox/Simethicone (Mylanta) 30 ml Q4HP PRN PO HEARTBURN/INDIGESTION; Start 10/25/18 at 17:00 Aripiprazole (AbiLIFY) 5 mg DAILY PO ; Start 10/26/18 at 09:00; Stop 10/26/18 at 09:00; Status DC Aripiprazole (AbiLIFY) 5 mg DAILY PO Last administered on 10/26/18at 08:13; Start 10/26/18 at 09:00; Stop 10/26/18 at 14:42; Status DC Aripiprazole (AbiLIFY) 5 mg QHS PO Last administered on 10/28/18at 20:20; Start 10/27/18 at 21:00 Calcium Carbonate (Oscal) 1,000 mg DAILY PO Last administered on 10/28/18at 08:59; Start 10/26/18 at 09:00 Escitalopram Oxalate (Lexapro) 20 mg DAILY PO Last administered on 10/28/18 09:01; Start 10/26/18 at 09:00 Ferrous Sulfate (Ferrous Sulfate) 325 mg TID PO Last administered on 10/28/18at 20:20; Start 10/25/18 at 21:00 Fluticasone Propionate (Flonase 0.05% Nasal [place]) 1 spray BID NARES ; Start 10/25/18 at 21:00; Stop 10/25/18 at 21:00; Status DC Fluticasone Propionate (Flonase 0.05% Nasal [place]) 2 spray DAILY@1200 NARES Last administered on 10/28/18at 12:25; Start 10/26/18 at 12:00 Gabapentin (Neurontin) 400 mg TID PO Last administered on 10/28/18 20:19; Start 10/25/18 at 21:00 Home Med (Med Rec Complete!) ASDIRECTED XX ; Start 10/25/18 at 15:30; Stop 10/25/18 at 15:34; Status DC Levothyroxine Sodium (Synthroid) 88 mcg DAILY@06 PO Last administered on 10/28/18at 05:47; Start 10/26/18 at 06:00 Lisinopril (Prinivil) 20 mg DAILY PO Last administered on 10/28/18 09:01; Start 10/26/18 at 09:00 Lisinopril (Prinivil) 20 mg QHS PO ; Start 10/25/18 at 21:00; Stop 10/25/18 at 21:00; Status DC Loratadine (Claritin) 10 mg DAILY PO Last administered on 10/28/18at 09:01; St art 10/26/18 at 09:00 Magnesium Hydroxide (Milk Of Magnesia) 30 ml DAILYPRN PRN PO CONSTIPATION; Start 10/25/18 at 17:00 Meloxicam (Mobic) 15 mg DAILY PO Last administered on 10/28/18at 09:01; Start 10/26/18 at 09:00 Multivitamins (Theragram-M) 1 tab DAILY PO Last administered on 10/28/18at 09:01; Start 10/26/18 at 09:00 Nystatin (Mycostatin) apply to skin fold at nape... BID TOP ; Start 10/25/18 at 21:00 Olanzapine (ZyPREXA ZYDIS) 5 mg Q6HP PRN PO ANXIETY/AGITATION; Start 10/25/18 at 17:00 Omeprazole (PriLOSEC) 40 mg BID PO Last administered on 10/28/18at 20:19; Start 10/25/18 at 21:00 Prazosin HCl (Minipress) 1 mg QHS PO Last administered on 10/25/18at 20:51; Start 10/25/18 at 21:00; Stop 10/26/18 at 14:42; Status DC Propranolol HCl (Inderal) 10 mg TID PRN PO ANXIETY/AGITATION; Start 10/28/18 at 13:00 Quetiapine Fumarate (SEROquel) 50 mg QHS PO Last administered on 10/28/18at 20:19; Start 10/25/18 at 21:00 Topiramate (TopAMAX) 150 mg BID PO ; Start 10/25/18 at 21:00; Status UNV Trazodone HCl (Desyrel) 50 mg QHSP PRN PO INSOMNIA; Start 10/25/18 at 17:00 Vitamin D (Drisdol) 50,000 units We@09 PO Last administered on 10/26/18at 08:13; Start 10/26/18 at 09:00 Allergies Coded Allergies: No Known Allergies (Unverified , 11/22/16) TATYANA HERNANDEZ MD Oct 28, 2018 22:55
[2018-10-29] MEDS: LEVOTHYROXINE 88MCG TABLET (0.088 MG) PO SCH (06:11)
[2018-10-29 06:30] VITALS: BP 156/90
[2018-10-29] MEDS: OYSTER SHELL CALCIUM 500 MG TAB PO SCH (08:35)
[2018-10-29] MEDS: OMEPRAZOLE 20 MG CAP PO SCH ×2 (08:35→20:59)
[2018-10-29] MEDS: GABAPENTIN 400 MG CAP PO SCH ×3 (08:35→20:59)
[2018-10-29] MEDS: MULTIVITAMINS/MINERALS THERAP 1 TAB PO SCH (08:35)
[2018-10-29] MEDS: FERROUS SULFATE 325MG TAB PO SCH ×3 (08:35→20:59)
[2018-10-29] MEDS: LISINOPRIL 20 MG TAB PO SCH (08:35)
[2018-10-29] MEDS: MELOXICAM (MOBIC) 7.5 MG TAB PO SCH (08:35)
[2018-10-29] MEDS: LORATADINE 10 MG TAB PO SCH (08:35)
[2018-10-29] MEDS: ESCITALOPRAM OXALATE 10 MG TAB (LEXAPRO) PO SCH (08:36)
[2018-10-29] MEDS: NYSTATIN OINTMENT 15 GM TOP SCH ×2 (08:36→21:00)
[2018-10-29] MEDS: FLUTICASONE PROP 0.05% NASAL SPRAY 16 GM (FLONASE) NARES SCH (12:17)
[2018-10-29 19:12] VITALS: BP 136/92
[2018-10-29] MEDS: QUEtiapine FUMARATE 50 MG TAB PO SCH (20:59)
[2018-10-29] MEDS: ACETAMINOPHEN TAB 650MG DOSE (2X325MG) PO PRN (21:00)
[2018-10-29] MEDS: traZODone 50 MG TAB PO PRN (22:09)
[2018-10-30] MEDS: LEVOTHYROXINE 88MCG TABLET (0.088 MG) PO SCH (06:00)
[2018-10-30] MEDS: ACETAMINOPHEN TAB 650MG DOSE (2X325MG) PO PRN ×3 (07:30→20:11)
[2018-10-30 07:32] VITALS: BP 137/94
[2018-10-30] MEDS: FERROUS SULFATE 325MG TAB PO SCH ×3 (08:21→20:11)
[2018-10-30] MEDS: GABAPENTIN 400 MG CAP PO SCH ×3 (08:21→20:12)
[2018-10-30] MEDS: LORATADINE 10 MG TAB PO SCH (08:21)
[2018-10-30] MEDS: MELOXICAM (MOBIC) 7.5 MG TAB PO SCH (08:21)
[2018-10-30] MEDS: ESCITALOPRAM OXALATE 10 MG TAB (LEXAPRO) PO SCH (08:22)
[2018-10-30] MEDS: NYSTATIN OINTMENT 15 GM TOP SCH ×2 (08:22→20:07)
[2018-10-30] MEDS: MULTIVITAMINS/MINERALS THERAP 1 TAB PO SCH (08:22)
[2018-10-30] MEDS: OMEPRAZOLE 20 MG CAP PO SCH ×2 (08:22→20:12)
[2018-10-30] MEDS: LISINOPRIL 20 MG TAB PO SCH (08:22)
[2018-10-30] MEDS: OYSTER SHELL CALCIUM 500 MG TAB PO SCH (08:22)
--- NOTE | 2018-10-30 08:56 | MHIPN ---
DATE OF SERVICE: 10/29/2018 The patient today tells me that "My anxiety is better, actually I'm feeling really good today." She says that she actually slept well, which it has been a very long time since she had been sleeping good. MENTAL STATUS EXAMINATION: She is alert and oriented times three. Eye contact is fair. Psychomotor activity is normal. No formal thought disorder noted. Her mood is "better." Affect full range and appropriate. She is not psychotic, suicidal or homicidal ideations. Concentration is fair. Memory fair. DIAGNOSES: Unspecified mood disorder. Rule out bipolar disorder. Generalized anxiety disorder. Panic disorder. TREATMENT PLAN: At this point, the patient will continue to be monitored for continued resolution of suicidal ideations and continued elevation and stabilization of her mood.
[2018-10-30] MEDS: FLUTICASONE PROP 0.05% NASAL SPRAY 16 GM (FLONASE) NARES SCH (11:59)
[2018-10-30 18:21] VITALS: BP 135/78
[2018-10-30] MEDS: QUEtiapine FUMARATE 50 MG TAB PO SCH (20:11)
[2018-10-30] MEDS: traZODone 50 MG TAB PO PRN (21:23)
[2018-10-31] MEDS: LEVOTHYROXINE 88MCG TABLET (0.088 MG) PO SCH (06:01)
[2018-10-31 06:47] VITALS: BP 136/72
[2018-10-31] MEDS: NYSTATIN OINTMENT 15 GM TOP SCH (08:54)
[2018-10-31] MEDS: ESCITALOPRAM OXALATE 10 MG TAB (LEXAPRO) PO SCH (08:58)
[2018-10-31] MEDS: LORATADINE 10 MG TAB PO SCH (08:58)
[2018-10-31] MEDS: MELOXICAM (MOBIC) 7.5 MG TAB PO SCH (08:58)
[2018-10-31] MEDS: OYSTER SHELL CALCIUM 500 MG TAB PO SCH (08:58)
[2018-10-31] MEDS: GABAPENTIN 400 MG CAP PO SCH ×2 (08:58→15:24)
[2018-10-31] MEDS: FERROUS SULFATE 325MG TAB PO SCH ×2 (08:58→15:24)
[2018-10-31] MEDS: MULTIVITAMINS/MINERALS THERAP 1 TAB PO SCH (08:58)
[2018-10-31] MEDS: OMEPRAZOLE 20 MG CAP PO SCH (08:58)
[2018-10-31 09:27] VITALS: BP 132/85
[2018-10-31] MEDS: LISINOPRIL 20 MG TAB PO SCH (09:27)
[2018-10-31] MEDS ORDERED: ARIP1TAB6 PO (11:43)
[2018-10-31] MEDS ORDERED: PROP10TA56 PO (11:43)
[2018-10-31] MEDS ORDERED: TRAZ-252 PO (11:43)
[2018-10-31] MEDS ORDERED: GABA-845 PO (11:43)
[2018-10-31] MEDS ORDERED: ESCI20TA PO (11:43)
[2018-10-31] MEDS: FLUTICASONE PROP 0.05% NASAL SPRAY 16 GM (FLONASE) NARES SCH (12:03)
--- NOTE | 2018-11-07 20:50 | MHDSPDOC ---
[facility] Discharge Summary Discharge Summary DATE OF ADMISSION: Oct 25, 2018 at 16:59 DATE OF DISCHARGE: Oct 31, 2018 at 16:10 DISCHARGE DIAGNOSES: Bipolar 2 disorder, depressive episode Generalized anxiety disorder. Panic disorder. REASON FOR ADMISSION: Patient is a 38 -year-old , female, who as per ED report: "Reason for Referral * PT is +SI with plan to OD Chief Complaint PT states that September 28 she overdosed to kill herself. She had been messaging with her brother and then she suddenly became overwhelmed with depression and she ingested 59 hydrocodone. PT can't remeber all the details to include how 911 was called. PT was transferred to [place] for inpatient due to [facility] being at capacity. PT states she has been doing well since her return from the hospital but this morning she woke up and felt the same way she ahd felt right before she tried to kill herself. PT attempted to see her PCP and was asked to come back at 3:30 today. PT then called her therapist who called 911 per PT. PT states that there is little difference in how she feels today as opposed to 09/28 so she is now scared she will again attempt suicide "It came on me so fast last time" At this pint PT has begun to cry and reassurance was provided. PT lives alone and she moved to this are 1 year ago to be closer to her brother and CANDIDA. She states due to anxiety she did not reach out for a therapist until a few months ago. PT states she suffers with depression and anxiety. PT does not speak to anyone on daily basis and if she were to not leave her apartment "Someone would probably notice after a couple days". PT cannot CFS at this time." CONSULTANTS INVOLVED: None TREATMENT AND PROGRESS ON THE UNIT : The patient was pleasant and cooperative. Upon initial presentation, she was interested in her treatment, she attended groups and was compliant with medications. She was very anxious and she had panic attacks while being at our Unit. She stated that she had attended some groups but she thought she couldn't attend yoga because she was not able to lay on the floor but this insurance underwriter sales explained she could do it while sitting down because she could stretch her upper body. she became interested and both of us looked into yoga for people with disabilities, she was excited to know she could do it. She was started on Propranolol 10 mgs PO TIP, Gabapentin 400 mgs PO TID, Seroquel 50 mgs PO QHS, Lexapro 20 mgs Po daily and Abilify 5 mgs PO QHS. The patient has agood response to medications. Gabapentin was able to calm some of her anxiety. She didn't take Propranolol PRN because she felt improved after going to groups and talking to me or other staff members. She didn't report medications side effects neither swe observed advrse/negative medication side effects. Abilify was given as a n antidepressant booster and she did respond well to it. Her mood and affect improved, she was optimistic, had plans for the future. HOSPITAL COURSE: As above DISCHARGE ASSESSMENT: The patient was not suicidal,not homicidal, not psychotic. She didn't report medication side effects, she was future orientated, she was not in danger to self or others. MENTAL STATUS EXAMINATION ON DISCHARGE: General Appearance: well groomed, dressed in personal clothes, pleasant Build: overweight Demeanor: pleasant, cooperative Eye Contact: good Activity: calm, no psychomotor agitation or retardation observed Behavior: cooperative Speech: clear, spontaneous, reg/rate,rhythm,volume Mood: less depressed, less anxious Affect: full, appropriate, congruent, anxious, Thought Process: logical/linear Thought Content (Delusions): none reported Thought Content (Other): denies SI/HI/AV hallucinations Thought Content (Aggressive): none reported Perception (Hallucinations): none reported Perception (Other): none reported Cognition (Impairment of): none reported Cognition(Intelligence Est.): average Oriented: Awake, Alert, Oriented times three Insight: fair Judgment: Fair Psychosis: Denies MEDICATIONS ON DISCHARGE: Scheduled Aripiprazole (Aripiprazole) 5 Mg Tablet, 5 MG PO DAILY for mood, #7 Calcium Carbonate/Vitamin D3 (Oyster Shell 500-Vit D3 200 Tb) 1 Each Tablet, 1 TAB PO DAILY, (Reported) Ergocalciferol (Vitamin D2) (Vitamin D2) 50,000 Unit Capsule, 50,000 UNIT PO QWEEK, (Reported) WEDNESDAYS Escitalopram Oxalate (Escitalopram Oxalate) 20 Mg Tablet, 20 MG PO DAILY for depression, #7 Ferrous Sulfate (Ferrous Sulfate) 325 Mg Tablet.dr, 325 MG PO TID, (Reported) Fluticasone Propionate (Flonase Allergy Relief) 9.9 Ml Ceiba.susp, 2 SPRAY NA DAILY, (Reported) TAKES AROUND NOON Gabapentin (Gabapentin) 400 Mg Cap, 400 MG PO TID for anxiety/pain, #21 Levothyroxine Sodium (Levothyroxine Sodium) 88 Mcg Tab, 88 MCG PO DAILY, (Reported) Lisinopril (Lisinopril) 20 Mg Tablet, 20 MG PO DAILY, (Reported) Loratadine (Loratadine) 10 Mg Tablet, 10 MG PO DAILY, (Reported) Meloxicam (Meloxicam) 15 Mg Tab, 15 MG PO DAILY, (Reported) Multivit-Minerals/Folic Acid (Adult Multi Gummies) 1 Chw Chw, 1 CHW PO DAILY, (Reported) Omeprazole (Omeprazole) 40 Mg Cap, 40 MG PO BID, (Reported) Quetiapine Fumarate (Quetiapine Fumarate) 25 Mg Tablet, 50 MG PO QHS, (Reported) Zonisamide (Zonisamide) 25 Mg Capsule, 25 MG PO BID, (Reported) TAPERING UP. 25MG BID FOR 1 WEEK, 25MG QAM AND 50MG QHS FOR ONE WEEK, THEN 50MG BID FOR FINAL DOSE TO CONTINUE Scheduled PRN Hydrocortisone (Hydrocortisone) 453.6 Gm Cream..g., 1 DOSE TOP DAILY PRN for RASH/ITCHING, (Reported) APPLY TO NECK Ketoconazole (Ketoconazole) 120 Ml Shampoo, 1 DOSE TOP DAILY PRN for DRY SCALP, (Reported) Propranolol HCl (Propranolol HCl) 10 Mg Tablet, 10 MG PO TID PRN for ANXIETY/AGITATION, #21 Trazodone HCl (Trazodone HCl) 50 Mg Tablet, 50 MG PO QHSP PRN for INSOMNIA, #7 PLAN/FOLLOWUP ARRANGEMENTS: Follow Up Care Education Label * Mental Health Appt 1 * Mental Health [facility] * Established With This Provider Yes * Therapist DR. BROWNLEE * Date Nov 03, 2018 * Time 11:00 * Address of Clinic or Practice [address] [facility] * Follow Up Care Education Label * Medical * Medical Follow Up [facility] * Established With This Provider Yes * Therapist DR. PIERSON * Date Nov 09, 2018 * Time 11:00 * Address of Clinic or Practice [address] [place] [address] * Follow Up Care Education Label * Care Coordination * Care Coordination/Case Management/Supervision [facility] * Established With This Provider Yes * Supervisor Instrument Repair Calli Maya * Follow Up Care Education Label * Mental Health Appt 2 * Mental Health [facility] * Established With This Provider Yes * Therapist PRINCE RIVERA * Date Nov 07, 2018 * Time 14:00 * Address of Clinic or Practice [facility] * The amount of time spent in the coordination of care for this patient was approximately 30 minutes. Medications Scheduled Aripiprazole (Aripiprazole) 5 Mg Tablet, 5 MG PO DAILY for mood, #7 Calcium Carbonate/Vitamin D3 (Oyster Shell 500-Vit D3 200 Tb) 1 Each Tablet, 1 TAB PO DAILY, (Reported) Ergocalciferol (Vitamin D2) (Vitamin D2) 50,000 Unit Capsule, 50,000 UNIT PO QWEEK, (Reported) WEDNESDAYS Escitalopram Oxalate (Escitalopram Oxalate) 20 Mg Tablet, 20 MG PO DAILY for depression, #7 Ferrous Sulfate (Ferrous Sulfate) 325 Mg Tablet.dr, 325 MG PO TID, (Reported) Fluticasone Propionate (Flonase Allergy Relief) 9.9 Ml Ceiba.susp, 2 SPRAY NA DAILY, (Reported) TAKES AROUND NOON Gabapentin (Gabapentin) 400 Mg Cap, 400 MG PO TID for anxiety/pain, #21 Levothyroxine Sodium (Levothyroxine Sodium) 88 Mcg Tab, 88 MCG PO DAILY, (Reported) Lisinopril (Lisinopril) 20 Mg Tablet, 20 MG PO DAILY, (Reported) Loratadine (Loratadine) 10 Mg Tablet, 10 MG PO DAILY, (Reported) Meloxicam (Meloxicam) 15 Mg Tab, 15 MG PO DAILY, (Reported) Multivit-Minerals/Folic Acid (Adult Multi Gummies) 1 Chw Chw, 1 CHW PO DAILY, (Reported) Omeprazole (Omeprazole) 40 Mg Cap, 40 MG PO BID, (Reported) Quetiapine Fumarate (Quetiapine Fumarate) 25 Mg Tablet, 50 MG PO QHS, (Reported) Zonisamide (Zonisamide) 25 Mg Capsule, 25 MG PO BID, (Reported) TAPERING UP. 25MG BID FOR 1 WEEK, 25MG QAM AND 50MG QHS FOR ONE WEEK, THEN 50MG BID FOR FINAL DOSE TO CONTINUE Scheduled PRN Hydrocortisone (Hydrocortisone) 453.6 Gm Cream..g., 1 DOSE TOP DAILY PRN for RASH/ITCHING, (Reported) APPLY TO NECK Ketoconazole (Ketoconazole) 120 Ml Shampoo, 1 DOSE TOP DAILY PRN for DRY SCALP, (Reported) Propranolol HCl (Propranolol HCl) 10 Mg Tablet, 10 MG PO TID PRN for ANXIETY/PORFIRIO TATION, #21 Trazodone HCl (Trazodone HCl) 50 Mg Tablet, 50 MG PO QHSP PRN for INSOMNIA, #7 Allergies Coded Allergies: No Known Allergies (Unverified , 11/22/16) TATYANA HERNANDEZ MD Nov 07, 2018 20:37
== END 2018-10-31 16:10 | disposition home or self-care (01) | DRG 753 ==
LOC: M ED 11:31 → M ED INP 16:59 → M PSY 17:50
PROVIDERS: ADMIT Psychiatry & Neurology Psychiatry; ATTEND Psychiatry & Neurology Psychiatry
DX: F31.81 Bipolar II disorder (principal); E66.01 Morbid (severe) obesity due to excess calories; I10 Essential (primary) hypertension; F41.0 Panic disorder [episodic paroxysmal anxiety]; Z79.899 Other long term (current) drug therapy; G43.909 Migraine, unspecified, not intractable, without status migrainosus; M51.36 Other intervertebral disc degeneration, lumbar region; K21.9 Gastro-esophageal reflux disease without esophagitis; E03.9 Hypothyroidism, unspecified; D50.9 Iron deficiency anemia, unspecified

== ENCOUNTER 2018-11-09 12:28 | Emergency (ER) | payer OTHER ==
[~2018-11-09] VITALS: Ht 167.6 cm; Wt 127.7 kg
[~2018-11-09 12:28] MED LIST changes: +ARIP1TAB6 PO; +ESCI20TA PO; +FLON1SPR; +HYDR2.5C TOP; +KETO2SHA9 TOP; +LISI-538 PO; +LORA-674 PO; +OYST500T10 PO; +PRAZ1CAP PO; +PROP10TA56 PO; +QUET1TAB7 PO; +TOPI50TA9 PO; +TRAZ-252 PO; +VITA500045 PO; +ZONI25CA2 PO; +ZONI50CA3 PO
[2018-11-09] MEDS ORDERED: PANTOPRAZOLE 40MG INJ (PROTONIX) (C9113) IV ONE (15:00)
[2018-11-09] MEDS ORDERED: GI COCKTAIL 50ML BTL(HYOSCYAMINE/MAALOX/LIDOCAINE VISCOUS)(1:3:1) PO ONE (15:00)
[2018-11-09 15:11] LABS: BASO # 0.1 10^3/uL (0.0-0.2); BASO % 0.6 % (0.0-1.0); EOS # 0.4 10^3/uL (0.0-0.50); EOS % 4.5 % (0.0-3.0); HEMATOCRIT 40.5 % (36.0-47.0); HEMOGLOBIN 12.5 g/dl (12.0-15.5); LYMPH # 2.6 10^3/uL (1.5-4.5); LYMPH % 30.1 % (24.0-44.0); MEAN CORPUSCULAR HEMOGLOBIN 26.6 pg (27.0-33.0); MEAN CORPUSCULAR HGB CONC 30.9 g/dl (32.0-36.5); MEAN CORPUSCULAR VOLUME 86.2 fl (80.0-96.0); MONO # 0.7 10^3/uL (0.0-0.8); MONO % 7.8 % (0.0-5.0); NEUTROPHILS # 4.9 10^3/uL (1.8-7.7); NEUTROPHILS % 56.7 % (36.0-66.0); PLATELET COUNT, AUTOMATED 252 10^3/uL (150-450); WHITE BLOOD COUNT 8.6 10^3/uL (4.0-10.0)
[2018-11-09 15:15] LABS: INR 1.07; PARTIAL THROMBOPLASTIN TIME 30.7 SECONDS (25.0-38.4); PROTHROMBIN TIME 13.6 SECONDS (11.8-14.0)
[2018-11-09 15:23] LABS: ALBUMIN 3.5 GM/DL (3.2-5.2); ALT/SGPT 63 U/L (12-78); BILIRUBIN,DIRECT < 0.1 MG/DL (0.0-0.2); BILIRUBIN,TOTAL 0.2 MG/DL (0.2-1.0); BLOOD UREA NITROGEN 15 MG/DL (7-18); CALCIUM LEVEL 8.8 MG/DL (8.5-10.1); CARBON DIOXIDE LEVEL 26 MEQ/L (21-32); CHLORIDE LEVEL 110 MEQ/L (98-107); CK-MB VALUE MASS 1.6 NG/ML (<3.6); CPK CREATINE PHOSPHOKINASE 102 U/L (26-192); CREATININE FOR GFR 0.56 MG/DL (0.55-1.30); GLOMERULAR FILTRATION RATE > 60.0 (>58); GLUCOSE, FASTING 84 MG/DL (70-100); LIPASE 162 U/L (73-393); MB/CK RELATIVE INDEX 1.57 (< OR =4); POTASSIUM SERUM 4.1 MEQ/L (3.5-5.1); SODIUM LEVEL 144 MEQ/L (136-145); TOTAL PROTEIN 7.1 GM/DL (6.4-8.2); TROPONIN I < 0.02 NG/ML (< 0.10)
[2018-11-09] MEDS ORDERED: ISOVUE-370 76% 100ML VIAL (Q9967) As Ordered ONE (15:42)
--- NOTE | 2018-11-09 17:54 | REPVR ---
EXAM: CT Angiography Chest With Contrast EXAM DATE/TIME: 11/09/2018 5:09 PM CLINICAL HISTORY: 38 years old, female; Other: Abd pain rad to back; Additional info: Abd pain rad to back R/O dissection TECHNIQUE: Imaging protocol: Axial computed tomographic angiography images of the chest with intravenous contrast using CT angiography protocol. Coronal and sagittal reformatted images were created and reviewed. 3D rendering: MIP and 3D reconstructed images were created and reviewed. Radiation optimization: All CT scans at this facility use at least one of these dose optimization techniques: automated exposure control; mA and/or kV adjustment per patient size (includes targeted exams where dose is matched to clinical indication); or iterative reconstruction. Contrast material: ISOVUE 370; Contrast volume: 100 ml; Contrast route: IV; COMPARISON: No relevant prior studies available. FINDINGS: Pulmonary arteries: There are no pulmonary emboli. Aorta: There is no aortic dissection or aneurysm. Lungs: Unremarkable. No consolidation. No masses. Pleural space: Unremarkable. No pneumothorax. No pleural effusion. Heart: Unremarkable. No cardiomegaly. No pericardial effusion. Lymph nodes: Unremarkable. No enlarged lymph nodes. Bones/joints: The spine demonstrates mild degenerative changes. Soft tissues: Unremarkable. IMPRESSION: 1. There is no aortic dissection or aneurysm. 2. There are no pulmonary emboli. 3. No acute findings. Electronically signed by: Brian Montague On 11/09/2018 17:54:18 PM
--- NOTE | 2018-11-09 18:01 | REPVR ---
EXAM: CT Angiography Abdomen and Pelvis With Contrast EXAM DATE/TIME: 11/09/2018 5:09 PM CLINICAL HISTORY: 38 years old, female; Abdominal pain; Other: Abd pain; Additional info: Abd pain rad to back R/O dissection TECHNIQUE: Imaging protocol: Axial computed tomographic angiography images of the abdomen and pelvis with intravenous contrast material. Coronal and sagittal reformatted images were created and reviewed. 3D rendering: MIP and 3D reconstructed images were created and reviewed. Radiation optimization: All CT scans at this facility use at least one of these dose optimization techniques: automated exposure control; mA and/or kV adjustment per patient size (includes targeted exams where dose is matched to clinical indication); or iterative reconstruction. Contrast material: ISOVUE 370; Contrast volume: 100 ml; Contrast route: IV; COMPARISON: No relevant prior studies available. FINDINGS: VASCULATURE: Aorta: No aortic aneurysm. No aortic dissection. Celiac trunk and mesenteric arteries: No occlusion or significant stenosis. Renal arteries: No occlusion or significant stenosis. Right iliac arteries: No occlusion or significant stenosis. Left iliac arteries: No occlusion or significant stenosis. ABDOMEN: Liver: There is a diffuse decrease in hepatic parenchymal density, consistent with fatty infiltration. Tate's configuration right lobe liver. Gallbladder and bile ducts: There has been a cholecystectomy. Pancreas: Unremarkable. No mass. No ductal dilation. Spleen: Unremarkable. No splenomegaly. Adrenals: Unremarkable. No mass. Kidneys and ureters: Left renal cysts measuring up to 2 cm. Stomach and bowel: Unremarkable. No obstruction. No mucosal thickening. Appendix: No evidence of appendicitis. PELVIS: Bladder: Unremarkable. No mass. Reproductive: Marked expansion of the endometrial cavity measuring 5.7 cm maximally. Correlation with ultrasound suggested to exclude a endometrial mass. ABDOMEN and PELVIS: Intraperitoneal space: Unremarkable. No free air. No significant fluid collection. Bones/joints: Bulging disc annuli at L3-4 and L4-5 without significant spinal stenosis. Soft tissues: Unremarkable. Lymph nodes: 10 mm retroperitoneal lymph node adjacent to the left adrenal gland of uncertain significance. IMPRESSION: 1. There is a diffuse decrease in hepatic parenchymal density, consistent with fatty infiltration. Tate's configuration right lobe liver. 2. There has been a cholecystectomy. 3. Marked expansion of the endometrial cavity measuring 5.7 cm maximally. Correlation with ultrasound suggested to exclude a endometrial mass. 4. Unremarkable CTA of the abdominal vessels. Specifically, no evidence of any dissection. Electronically signed by: Brian Montague On 11/09/2018 18:01:51 PM
[2018-11-09] MEDS ORDERED: GABAPENTIN 400 MG CAP PO ONE (19:30)
[2018-11-09 20:00] VITALS: BP 131/58
--- NOTE | 2018-11-10 10:32 | ECGEPIP ---
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
--- NOTE | 2018-11-14 11:44 | ED PDOC ---
Post-Departure Follow-Up cta abd/p faxed to [facility] for fu David Billings MD Nov 14, 2018 11:44
== END 2018-11-09 20:19 | disposition home or self-care (01) ==
LOC: M ED 12:28 → EDBD 12:28 → M ED 20:19
DX: R93.5 Abnormal findings on diagnostic imaging of other abdominal regions, including retroperitoneum (principal); R10.13 Epigastric pain; M54.30 Sciatica, unspecified side; R19.7 Diarrhea, unspecified; I10 Essential (primary) hypertension; K21.9 Gastro-esophageal reflux disease without esophagitis; E07.9 Disorder of thyroid, unspecified; D50.9 Iron deficiency anemia, unspecified; G43.909 Migraine, unspecified, not intractable, without status migrainosus; F32.9 Major depressive disorder, single episode, unspecified; Z79.899 Other long term (current) drug therapy
CPT/HCPCS: 71275; 74174; 80048; 80076; 82550; 82553; 83690; 85025; 85610; 85730; 93005; 93041; 96374; 99285; C9113; Q9967

== ENCOUNTER → 2018-12-05 | Outpatient (CLI) | payer OTHER ==
--- NOTE | 2018-12-05 15:24 | REP ---
Clinical: Abnormal uterine bleeding. Technique: Transabdominal pelvic ultrasound with color Doppler evaluation. Findings: Enlarged heterogeneous uterus measures 13.9 x 9.5 x 12.3 cm and a large mass lesion as well as suspected hemorrhagic debris dominates the uterus and distends the endometrial canal to greater than 6.1 cm diameter. Color Doppler evaluation demonstrates vascularity to the above-mentioned irregular mass with RI=0.42. Bilateral ovaries are grossly unremarkable. Right ovary measures 6.2 x 4.2 x 5.2 cm. Left ovary measures 3.5 x 4.0 x 3.2 cm. No pelvic free fluid. Impression: Large vascular mass and hemorrhagic debris dominate the uterus and endometrial complex. Differential diagnosis includes large fibroid as well as neoplasm. Correlation and follow up is required. Electronically Signed by Delonte Miramontes MD 12/05/2018 03:15 P
== END ==
LOC: M RAD 13:39
PROVIDERS: ATTEND Family Medicine
DX: R93.5 Abnormal findings on diagnostic imaging of other abdominal regions, including retroperitoneum (principal); N85.8 Other specified noninflammatory disorders of uterus

== ENCOUNTER → 2018-12-14 | Outpatient (CLI) | payer OTHER ==
[~2018-12-14] MED LIST changes: +ESCI10TA2 PO; +FLUO20CA20 PO; -FLUO20CA8 PO; -OMEP40CA2 PO; +OMEP40CA97 PO; +RANI150T14 PO; +ZONI25CA13 PO; -ZONI25CA2 PO; +ZONI50CA11 PO; -ZONI50CA3 PO
== END ==
LOC: M SMT 14:44
PROVIDERS: ATTEND Obstetrics & Gynecology
DX: Z13.79 Encounter for other screening for genetic and chromosomal anomalies (principal); Z80.3 Family history of malignant neoplasm of breast; Z80.1 Family history of malignant neoplasm of trachea, bronchus and lung; Z80.52 Family history of malignant neoplasm of bladder

== ENCOUNTER → 2019-01-16 | Outpatient (REF) | payer OTHER ==
[~2019-01-16] MED LIST changes: -FLUO20CA20 PO; +FLUO20CA8 PO; +OMEP40CA2 PO; -OMEP40CA97 PO; -ZONI25CA13 PO; +ZONI25CA2 PO; -ZONI50CA11 PO; +ZONI50CA3 PO
[2019-01-17 11:18] LABS: BLOOD UREA NITROGEN 12 MG/DL (7-18); CALCIUM LEVEL 9.9 MG/DL (8.5-10.1); CARBON DIOXIDE LEVEL 23 MEQ/L (21-32); CHLORIDE LEVEL 106 MEQ/L (98-107); CREATININE FOR GFR 0.61 MG/DL (0.55-1.30); GLOMERULAR FILTRATION RATE > 60.0 (>58); GLUCOSE, FASTING 146 MG/DL (70-100); SODIUM LEVEL 140 MEQ/L (136-145)
== END ==
LOC: M SFHCCLAY 08:07
PROVIDERS: ATTEND Family Medicine
DX: I10 Essential (primary) hypertension (principal)

== ENCOUNTER 2019-01-27 07:35 | Day surgery (SDC) | payer OTHER ==
[~2019-01-27] VITALS: Ht 167.6 cm; Wt 127.0 kg
[~2019-01-27 07:35] MED LIST changes: +LIDOCAINE 1% MDV 20ML VIAL SQ PRN; +LR 1,000 ML IV ONE
[2019-01-27] MEDS ORDERED: ROCURONIUM BROMIDE 50 MG/5 ML VIAL As Ordered ONE (07:53)
[2019-01-27] MEDS ORDERED: PROPOFOL 200 MG/20 ML VIAL As Ordered ONE (07:53)
[2019-01-27] MEDS ORDERED: LIDOCAINE 2% INJ 100 MG/5 ML SDV (FOR ANES.) As Ordered ONE (07:53)
[2019-01-27] MEDS ORDERED: ONDANSETRON 4MG/2ML VIAL (J2405) As Ordered ONE (07:54)
[2019-01-27] MEDS ORDERED: dexameTHASONE 4 MG/ML 1ML VIAL (J1100) As Ordered ONE (07:54)
[2019-01-27] MEDS ORDERED: KETOROLAC 60 MG/2 ML VIAL (J1885) As Ordered ONE (07:54)
[2019-01-27 08:08] LABS: HEMATOCRIT 31.7 % (36.0-47.0); MEAN CORPUSCULAR HEMOGLOBIN 27.2 pg (27.0-33.0); MEAN CORPUSCULAR HGB CONC 31.5 g/dl (32.0-36.5); MEAN CORPUSCULAR VOLUME 86.1 fl (80.0-96.0); PLATELET COUNT, AUTOMATED 291 10^3/uL (150-450); RED BLOOD COUNT 3.68 10^6/uL (4.00-5.40); WHITE BLOOD COUNT 11.8 10^3/uL (4.0-10.0)
[2019-01-27 08:32] LABS: URINE PREG TEST NEGATIVE (NEGATIVE)
[2019-01-27] MEDS ORDERED: MIDAZOLAM INJ 2 MG/2 ML VIAL (J2250) As Ordered ONE (09:05)
[2019-01-27] MEDS ORDERED: fentaNYL 100 MCG/2 ML INJECTION (J3010) As Ordered ONE (09:05)
[2019-01-27] MEDS ORDERED: PROMETHAZINE INJ 25 MG/ML VIAL (J2550) IV PRN (11:15)
[2019-01-27] MEDS ORDERED: oxyCODONE 5MG TAB PO PRN (11:15)
[2019-01-27] MEDS ORDERED: ONDANSETRON 4MG/2ML VIAL (J2405) IV PRN (11:15)
[2019-01-27] MEDS ORDERED: fentaNYL 100 MCG/2 ML INJECTION (J3010) IV PRN (11:15)
[2019-01-27] MEDS ORDERED: LR 1,000 ML IV SCH (11:15)
[2019-01-27] MEDS ORDERED: METOCLOPRAMIDE INJ 10MG/2ML VIAL (J2765) IV PRN (11:15)
[2019-01-27] MEDS ORDERED: PERCOCET 5MG/325MG TAB PO PRN (11:15)
--- NOTE | 2019-01-27 11:43 | RO ---
DATE OF PROCEDURE: 01/27/2019 PREPROCEDURE DIAGNOSIS: Thickened endometrium. POSTPROCEDURE DIAGNOSIS: Thickened endometrium. PROCEDURE: Dilation curettage with hysteroscopy and MyoSure. SURGEON: Yani Jane MD. STEAM POWERPLANT SUPERVISOR: None. ANESTHESIA: General. ESTIMATED BLOOD LOSS: 100 mL. INTRAVENOUS FLUIDS: 600 mL of lactated Ringers solution. URINE OUTPUT: Not obtained. PREOPERATIVE ANTIBIOTICS: None. SPECIMENS: 1. Endometrial curettings. 2. Endometrial sampling. OPERATIVE FINDINGS: Patient with excessive amount of endometrium unable to visual ostia. Visualization of endometrium concerning for endometrial malignancy. The uterus sounded to 9.5 cm. DESCRIPTION OF PROCEDURE: After informed consent was obtained and written consent was reviewed, the patient was brought to the operating room where she was placed under general anesthesia. She was then placed in the low lithotomy position, was prepped and draped in the normal sterile fashion. Time-out in the operating room was then performed identifying the patient, procedure performed as well as drug allergies. [place] speculum was placed revealing the cervix. The anterior lip of the cervix was grasped with a single tooth tenaculum. The uterus was then sounded to 9.5 cm. The cervix was sequentially dilated using the Hanks dilator. The hysteroscope was then advanced through the cervical os and the endometrial cavity was surveyed showing excessive amount of endometrium concerning for endometrial malignancy. I was unable to visualize bilateral ostia. The MyoSure was then advanced. Direct sampling of the endometrial performed. Still was able to clear the endometrium. The hysteroscope was then removed and a sharp curet was then advanced through the cervical os to the level of the fundus, and the uterus was curetted in a 360-degree fashion with large amounts of tissue obtained. Sharp curet was then removed. The tenaculum was then removed. Tenaculum sites were noted to be hemostatic. The speculum was then removed. The patient was taken out of lithotomy position and was taken to the recovery room in stable condition. Counts were correct.
[2019-01-27 13:45] VITALS: BP 123/77
[2019-01-27] MEDS ORDERED: KETOROLAC 30 MG/ML VIAL (J1885) IV SCH (16:00)
== END 2019-01-27 14:26 | disposition home or self-care (01) ==
LOC: M SDC 07:35
PROVIDERS: ATTEND Obstetrics & Gynecology
DX: C54.1 Malignant neoplasm of endometrium (principal); I10 Essential (primary) hypertension; E03.9 Hypothyroidism, unspecified; K21.9 Gastro-esophageal reflux disease without esophagitis; D64.9 Anemia, unspecified; G47.30 Sleep apnea, unspecified; F41.9 Anxiety disorder, unspecified; F32.9 Major depressive disorder, single episode, unspecified; G43.909 Migraine, unspecified, not intractable, without status migrainosus; Z79.899 Other long term (current) drug therapy
CPT/HCPCS: 36415; 58558; 84703; 85027; 86850; 86900; 86901; 88305; J1100; J1885; J2250; J2405; J3010

== ENCOUNTER → 2019-06-23 | Outpatient (REF) | payer OTHER ==
[~2019-06-23] MED LIST changes: +FLUO20CA20 PO; -FLUO20CA8 PO; -LIDOCAINE 1% MDV 20ML VIAL SQ PRN; -LR 1,000 ML IV ONE; -OMEP40CA2 PO; +OMEP40CA97 PO; +ZONI25CA13 PO; -ZONI25CA2 PO; +ZONI50CA11 PO; -ZONI50CA3 PO
[2019-06-23 12:11] LABS: BASO # 0.1 10^3/uL (0.0-0.2); BASO % 0.7 % (0.0-1.0); EOS # 0.4 10^3/uL (0.0-0.5); EOS % 4.7 % (0.0-3.0); HEMATOCRIT 42.6 % (36.0-47.0); HEMOGLOBIN 13.1 g/dl (12.0-15.5); LYMPH # 2.4 10^3/uL (1.5-5.0); LYMPH % 28.7 % (24.0-44.0); MEAN CORPUSCULAR HEMOGLOBIN 24.1 pg (27.0-33.0); MEAN CORPUSCULAR HGB CONC 30.8 g/dl (32.0-36.5); MEAN CORPUSCULAR VOLUME 78.5 fl (80.0-96.0); MONO # 0.8 10^3/uL (0.0-0.8); MONO % 9.6 % (0.0-5.0); NEUTROPHILS # 4.7 10^3/uL (1.5-8.5); NEUTROPHILS % 55.9 % (36.0-66.0); PLATELET COUNT, AUTOMATED 228 10^3/uL (150-450); RED BLOOD COUNT 5.43 10^6/uL (4.00-5.40); WHITE BLOOD COUNT 8.3 10^3/uL (4.0-10.0)
[2019-06-23 12:23] LABS: ALBUMIN 3.7 GM/DL (3.2-5.2); ALT/SGPT 55 U/L (12-78); BILIRUBIN,TOTAL 0.3 MG/DL (0.2-1.0); BLOOD UREA NITROGEN 18 MG/DL (7-18); CALCIUM LEVEL 9.1 MG/DL (8.5-10.1); CARBON DIOXIDE LEVEL 21 MEQ/L (21-32); CHLORIDE LEVEL 109 MEQ/L (98-107); CREATININE FOR GFR 0.58 MG/DL (0.55-1.30); GLOMERULAR FILTRATION RATE > 60.0 (>58); GLUCOSE, FASTING 99 MG/DL (70-100); POTASSIUM SERUM 3.8 MEQ/L (3.5-5.1); RHEUMATOID FACTOR QUANT < 10.0 IU/ML (<15.0); SODIUM LEVEL 142 MEQ/L (136-145); TOTAL PROTEIN 7.5 GM/DL (6.4-8.2)
[2019-06-23 12:51] LABS: ERYTHROCYTE SEDIMENTATION RATE 11 mm/hr (0-20)
[2019-06-26 14:11] LABS: ANTINUCLEAR ANTIBODIES DIRECT Negative (Negative)
== END ==
LOC: M LABDRAWC 11:10
PROVIDERS: ATTEND Psychiatry & Neurology Neurology
DX: R51 Headache (principal)

== ENCOUNTER → 2019-06-23 | Outpatient (REF) | payer OTHER ==
[2019-06-23 12:10] LABS: HEMATOCRIT 41.9 % (36.0-47.0); HEMOGLOBIN 12.7 g/dl (12.0-15.5); MEAN CORPUSCULAR HEMOGLOBIN 23.7 pg (27.0-33.0); MEAN CORPUSCULAR HGB CONC 30.3 g/dl (32.0-36.5); MEAN CORPUSCULAR VOLUME 78.3 fl (80.0-96.0); PLATELET COUNT, AUTOMATED 233 10^3/uL (150-450); RED BLOOD COUNT 5.35 10^6/uL (4.00-5.40); WHITE BLOOD COUNT 8.6 10^3/uL (4.0-10.0)
[2019-06-23 12:25] LABS: ALBUMIN 3.7 GM/DL (3.2-5.2); ALT/SGPT 54 U/L (12-78); BILIRUBIN,TOTAL 0.3 MG/DL (0.2-1.0); BLOOD UREA NITROGEN 19 MG/DL (7-18); CARBON DIOXIDE LEVEL 23 MEQ/L (21-32); CHLORIDE LEVEL 107 MEQ/L (98-107); CHOLESTEROL LEVEL 185 MG/DL (<200); CHOLESTEROL RISK RATIO 5.967 (<5); GLOMERULAR FILTRATION RATE > 60.0 (>58); GLUCOSE, FASTING 101 MG/DL (70-100); HDL CHOLESTEROL 31 MG/DL (>40); LDL CHOLESTEROL 98 MG/DL (<100); NON-HDL-C 154 MG/DL; POTASSIUM SERUM 3.9 MEQ/L (3.5-5.1); SODIUM LEVEL 143 MEQ/L (136-145); TOTAL 25(OH) VITAMIN D 35.2 NG/ML (30.0-100.0); TOTAL PROTEIN 7.5 GM/DL (6.4-8.2); TRIGLYCERIDES LEVEL 280 MG/DL (<150)
[2019-06-23 12:43] LABS: HEMOGLOBIN A1c 7.2 %
== END ==
LOC: M SFHCCLAY 07:19
PROVIDERS: ATTEND Nurse Practitioner Family
DX: K21.9 Gastro-esophageal reflux disease without esophagitis (principal); I10 Essential (primary) hypertension; R73.9 Hyperglycemia, unspecified; E78.5 Hyperlipidemia, unspecified; E03.9 Hypothyroidism, unspecified; E55.9 Vitamin D deficiency, unspecified

== ENCOUNTER → 2019-06-28 | Outpatient (CLI) | payer OTHER ==
--- NOTE | 2019-06-28 15:47 | REPMRS ---
Patient History The patient states she has not had a clinical breast exam in over a year. Patient is postmenopausal and is nulliparous. Family history of breast cancer at age 49 in mother. Digital Woman Screen Mammo: June 28, 2019 - Exam #: [id number] Bilateral CC and MLO view(s) were taken. Technologist: Jovita Ferreira, Technologist No prior studies available for comparison. FINDINGS: There are scattered fibroglandular densities. There is no evidence of dominant mass, architectural distortion, or grouped microcalcification typical of malignancy. 3-D tomosynthesis shows no additional findings. Assessment: BI-RADS/ACR category 1 mammogram. Negative Mammogram. Recommendation Breast MRI of both breasts in 6 months. Routine screening mammogram of both breasts in 1 year (for women over age 40). This patient's Lifetime Breast Cancer RIsk is estimated at 22.7 %. Annual screening Breast MRI scanniing is recommended for patient's whose lifetime risk assessment is over 20%. This mammogram was interpreted with the aid of an FDA-approved computer-aided dectection system. Electronically Signed By: Pedro Pablo Colon MD 06/28/19 [id number]
== END ==
LOC: M WHC 14:03
PROVIDERS: ATTEND Obstetrics & Gynecology
DX: Z12.31 Encounter for screening mammogram for malignant neoplasm of breast (principal); Z80.3 Family history of malignant neoplasm of breast

== ENCOUNTER → 2019-08-01 | Outpatient (CLI) | payer OTHER ==
--- NOTE | 2019-08-01 14:33 | REP ---
Clinical: Cough . Comparison: None . Technique: PA and lateral. Findings: The mediastinum and cardiac silhouette are normal. The lung rodriguez are clear and without acute consolidation, effusion, or pneumothorax. The skeletal structures are intact and normal. Impression: 1. No acute cardiopulmonary process. Electronically Signed by Delonte Miramontes MD 08/01/2019 02:24 P
== END ==
LOC: M CLY 14:04
PROVIDERS: ATTEND Nurse Practitioner Family
DX: R05 Cough (principal)

== ENCOUNTER → 2019-10-25 | Outpatient (REF) | payer OTHER ==
[~2019-10-25] MED LIST changes: +KETO2SHA8 TOP; -KETO2SHA9 TOP
[2019-10-25 16:30] LABS: HEMATOCRIT 45.2 % (36.0-47.0); HEMOGLOBIN 14.8 g/dl (12.0-15.5); MEAN CORPUSCULAR HEMOGLOBIN 27.8 pg (27.0-33.0); MEAN CORPUSCULAR HGB CONC 32.7 g/dl (32.0-36.5); PLATELET COUNT, AUTOMATED 231 10^3/uL (150-450); RED BLOOD COUNT 5.32 10^6/uL (4.00-5.40); WHITE BLOOD COUNT 8.7 10^3/uL (4.0-10.0)
[2019-10-25 16:40] LABS: CHOLESTEROL RISK RATIO 5.871 (<5); PERCENT SATURATION 23.1 % (13.2-45.0); THYROID STIMULATING HORMONE 12.5 uIU/ML (0.358-3.740); TOTAL 25(OH) VITAMIN D 21.8 NG/ML (30.0-100.0)
[2019-10-25 16:45] LABS: HEMOGLOBIN A1c 8.4 %
[2019-10-25 17:08] LABS: MALB URINE SIEMENS 25.1 MG/L; MAU/CREAT RATIO 24.3 MCG/MG (0.0-30.0)
== END ==
LOC: M SFHCCLAY 13:36
PROVIDERS: ATTEND Nurse Practitioner Family
DX: E11.69 Type 2 diabetes mellitus with other specified complication (principal); E78.5 Hyperlipidemia, unspecified; E03.9 Hypothyroidism, unspecified; E55.9 Vitamin D deficiency, unspecified

== ENCOUNTER → 2020-01-02 | Outpatient (REF) | payer OTHER ==
[2020-01-02 19:52] LABS: HEMATOCRIT 46.1 % (36.0-47.0); HEMOGLOBIN 15.1 g/dl (12.0-15.5); MEAN CORPUSCULAR HEMOGLOBIN 29.4 pg (27.0-33.0); MEAN CORPUSCULAR HGB CONC 32.8 g/dl (32.0-36.5); MEAN CORPUSCULAR VOLUME 89.7 fl (80.0-96.0); PLATELET COUNT, AUTOMATED 237 10^3/uL (150-450); RED BLOOD COUNT 5.14 10^6/uL (4.00-5.40); WHITE BLOOD COUNT 7.9 10^3/uL (4.0-10.0)
[2020-01-02 20:34] LABS: ALBUMIN 3.7 GM/DL (3.2-5.2); ALT/SGPT 65 U/L (12-78); BILIRUBIN,TOTAL 0.4 MG/DL (0.2-1.0); BLOOD UREA NITROGEN 19 MG/DL (7-18); CALCIUM LEVEL 8.8 MG/DL (8.5-10.1); CARBON DIOXIDE LEVEL 25 MEQ/L (21-32); CHLORIDE LEVEL 110 MEQ/L (98-107); CHOLESTEROL LEVEL 206 MG/DL (<200); CHOLESTEROL RISK RATIO 4.577 (<5); CREATININE FOR GFR 0.62 MG/DL (0.55-1.30); FERRITIN 56 NG/ML (8-252); FOLATE 12.1 NG/ML (>5.4); GLOMERULAR FILTRATION RATE > 60.0 (>58); GLUCOSE, FASTING 124 MG/DL (70-100); HDL CHOLESTEROL 45 MG/DL (>40); IRON (FE) 61 UG/DL (50-170); LDL CHOLESTEROL 118 MG/DL (<100); MAU/CREAT RATIO 15.8 MCG/MG (0.0-30.0); NON-HDL-C 161 MG/DL; PERCENT SATURATION 19.4 % (13.2-45.0); POTASSIUM SERUM 3.8 MEQ/L (3.5-5.1); SODIUM LEVEL 143 MEQ/L (136-145); TOTAL 25(OH) VITAMIN D 86.4 NG/ML (30.0-100.0); TOTAL IRON BINDING CAPACITY 315 UG/DL (250-450); TOTAL PROTEIN 7.3 GM/DL (6.4-8.2); TRIGLYCERIDES LEVEL 217 MG/DL (<150); VITAMIN B12 LEVEL 796 PG/ML (247-911)
== END ==
LOC: M LABDRAWC 13:14
PROVIDERS: ATTEND Nurse Practitioner Family
DX: E11.9 Type 2 diabetes mellitus without complications (principal); E78.5 Hyperlipidemia, unspecified; E55.9 Vitamin D deficiency, unspecified; I10 Essential (primary) hypertension; E03.9 Hypothyroidism, unspecified

== ENCOUNTER → 2020-05-30 | Outpatient (CLI) | payer OTHER ==
[~2020-05-30] MED LIST changes: +ESCI10TA16 PO; -ESCI10TA2 PO; -ESCI20TA PO; +ESCI20TA16 PO; -LISI-538 PO; +LISI10TA22 PO; -LISI10TA4 PO; +LISI20TA33 PO; -QUET1TAB7 PO; +QUET25TA3 PO; +QUET50TA3; -QUET5TAB
--- NOTE | 2020-05-30 10:41 | REP ---
INDICATION: ACUTE RIGHT SIDED BACK PAIN W/SCIATICA COMPARISON: None. TECHNIQUE: AP, lateral, bilateral oblique, and coned-down views of the lumbar spine. FINDINGS: Alignment and lordosis maintained. Vertebral bodies are intact. Disc spaces are relatively normal/age-appropriate. No acute fracture/compression injury or subluxation. No obvious spondylolysis or spondylolisthesis.. IMPRESSION: Essentially normal age-appropriate lumbosacral Spine series. <Electronically signed by Delonte Miramontes > 05/30/20 [id number]
== END ==
LOC: M CLY 10:17
PROVIDERS: ATTEND Family Medicine
DX: M54.41 Lumbago with sciatica, right side (principal)

== ENCOUNTER → 2021-02-20 | Outpatient (REF) | payer OTHER ==
[~2021-02-20] MED LIST changes: +GABA-283 PO; -GABA-845 PO; +OMEP40CA4 PO; -OMEP40CA97 PO; +QUET1TAB17 PO; -QUET25TA3 PO; -QUET50TA3; +QUET50TA4
[2021-02-20 16:07] LABS: BASO # 0.1 10^3/uL (0.0-0.2); BASO % 0.5 % (0.0-1.0); EOS # 0.2 10^3/uL (0.0-0.5); EOS % 2.2 % (0.0-3.0); HEMATOCRIT 46.7 % (36.0-47.0); HEMOGLOBIN 15.2 g/dl (12.0-15.5); LYMPH # 2.6 10^3/uL (1.5-5.0); LYMPH % 23.9 % (24.0-44.0); MEAN CORPUSCULAR HGB CONC 32.5 g/dl (32.0-36.5); MONO # 0.9 10^3/uL (0.0-0.8); MONO % 7.8 % (2.0-8.0); NEUTROPHILS # 7.2 10^3/uL (1.5-8.5); NEUTROPHILS % 65.2 % (36.0-66.0); PLATELET COUNT, AUTOMATED 265 10^3/uL (150-450); RED BLOOD COUNT 5.43 10^6/uL (4.00-5.40); WHITE BLOOD COUNT 11.1 10^3/uL (4.0-10.0)
[2021-02-20 16:27] LABS: HEMOGLOBIN A1c 6.7 %
[2021-02-20 16:53] LABS: ALBUMIN 3.7 GM/DL (3.2-5.2); ALT/SGPT 71 U/L (12-78); BILIRUBIN,TOTAL 0.4 MG/DL (0.2-1.0); BLOOD UREA NITROGEN 13 MG/DL (7-18); CALCIUM LEVEL 9.2 MG/DL (8.5-10.1); CARBON DIOXIDE LEVEL 26 MEQ/L (21-32); CHLORIDE LEVEL 104 MEQ/L (98-107); CHOLESTEROL LEVEL 224 MG/DL (<200); CHOLESTEROL RISK RATIO 4.571 (<5); CREATININE FOR GFR 0.63 MG/DL (0.55-1.30); FREE T4 0.79 NG/DL (0.76-1.46); GLOMERULAR FILTRATION RATE > 60.0 (>58); GLUCOSE, FASTING 137 MG/DL (70-100); HDL CHOLESTEROL 49 MG/DL (>40); LDL CHOLESTEROL 123 MG/DL (<100); NON-HDL-C 175 MG/DL; POTASSIUM SERUM 4.2 MEQ/L (3.5-5.1); SODIUM LEVEL 139 MEQ/L (136-145); TOTAL PROTEIN 7.7 GM/DL (6.4-8.2); TRIGLYCERIDES LEVEL 261 MG/DL (<150)
[2021-02-21 12:18] LABS: MAU/CREAT RATIO 14.2 MCG/MG (0.0-30.0)
== END ==
LOC: M SFHCCLAY 11:21
PROVIDERS: ATTEND Nurse Practitioner Family
DX: K52.9 Noninfective gastroenteritis and colitis, unspecified (principal); E11.69 Type 2 diabetes mellitus with other specified complication; I10 Essential (primary) hypertension; E78.5 Hyperlipidemia, unspecified; E03.9 Hypothyroidism, unspecified; K21.9 Gastro-esophageal reflux disease without esophagitis; E55.9 Vitamin D deficiency, unspecified; F32.9 Major depressive disorder, single episode, unspecified; F41.9 Anxiety disorder, unspecified; D50.9 Iron deficiency anemia, unspecified; M54.9 Dorsalgia, unspecified; N95.1 Menopausal and female climacteric states

== ENCOUNTER → 2021-04-29 | Outpatient (CLI) | payer OTHER ==
[~2021-04-29] MED LIST changes: +ACETAMINOPHEN TAB 650MG DOSE (2X325MG) PO PRN; +FAMO20TA PO
[2021-04-29 14:27] LABS: APPEARANCE, CSF CLEAR (CLEAR); COLOR, CSF COLORLESS (COLORLESS); CSF TUBE# CELL CNT TUBE 1
[2021-04-29 15:09] LABS: CSF TUBE# GLU TUBE 1; CSF TUBE# TP TUBE 1; GLUCOSE CSF 79 MG/DL (40-75); TOTAL PROTEIN,CSF 57 MG/DL (15-45)
[2021-04-29 15:30] VITALS: BP 133/80
--- NOTE | 2021-04-29 20:12 | REP ---
PROCEDURE NAME: FLUORO GUID FOR NEEDLE PLACEMT SEDATION: None CLINICAL INFORMATION: ? MS/ LUMBAR PUNCTURE. PHYSICIAN: Lisa Alexandra PROCEDURE DESCRIPTION: The procedure was performed by MARICEL Carlton, under the direct supervision of Dr. Miramontes. The risks and benefits of the procedure were explained to the patient and an informed consent was obtained both verbally and written. Directly prior to the start of the procedure a formal time-out was completed in the procedure room. The L3-4 interspace was localized using fluoroscopic guidance. The skin was prepped and draped in a sterile fashion. Five 1 % lidocaine 10 milligrams/milliliter was used as a local anesthetic. Using fluoroscopic guidance a 22 gauge spinal needle was inserted and advanced without significant difficulty in to the cerebral spinal space at the L3-4 interspinous level. Clear freely flowing cerebral spinal fluid was retrieved. A total of 12 mL of clear cerebral spinal fluid was withdrawn gently. The needle was withdrawn and a dressing was applied to the needle insertion site. Cerebral spinal fluid was submitted to the lab for routine analysis. 0.1 minutes of fluoroscopy time was utilized for this procedure. Some fluoroscopic images are performed with last image hold technology. These images require no additional radiation. The patient tolerated the procedure well and there were no immediate complications. After the appropriate amount of monitored convalescence the patient was discharged back to the unit. ESTIMATED BLOOD LOSS: Less than 1 mL COMPLICATIONS: None CONCLUSION: Successful lumbar puncture and CSF retrieval. <Electronically signed by Lisa Alexandra > 04/29/21 1412 <Electronically signed by Delonte Miramontes > 04/29/212007
== END ==
LOC: M IRPRO 11:37
PROVIDERS: ATTEND Psychiatry & Neurology Neurology
DX: R42 Dizziness and giddiness (principal); G43.809 Other migraine, not intractable, without status migrainosus; H53.8 Other visual disturbances; M54.81 Occipital neuralgia

== ENCOUNTER → 2021-05-21 | Outpatient (REF) | payer OTHER ==
[~2021-05-21] MED LIST changes: -ACETAMINOPHEN TAB 650MG DOSE (2X325MG) PO PRN; +FLUO-96 PO; -FLUO20CA20 PO
[2021-05-21 12:13] LABS: BASO % 0.5 % (0.0-1.0); EOS # 0.2 10^3/uL (0.0-0.5); EOS % 1.9 % (0.0-3.0); HEMATOCRIT 43.6 % (36.0-47.0); LYMPH # 2.1 10^3/uL (1.5-5.0); LYMPH % 25.2 % (24.0-44.0); MEAN CORPUSCULAR HEMOGLOBIN 28.4 pg (27.0-33.0); MEAN CORPUSCULAR HGB CONC 32.1 g/dl (32.0-36.5); MEAN CORPUSCULAR VOLUME 88.4 fl (80.0-96.0); MONO # 0.6 10^3/uL (0.0-0.8); MONO % 6.9 % (2.0-8.0); NEUTROPHILS # 5.4 10^3/uL (1.5-8.5); NEUTROPHILS % 65.3 % (36.0-66.0); PLATELET COUNT, AUTOMATED 240 10^3/uL (150-450); RED BLOOD COUNT 4.93 10^6/uL (4.00-5.40); WHITE BLOOD COUNT 8.3 10^3/uL (4.0-10.0)
[2021-05-21 12:47] LABS: ERYTHROCYTE SEDIMENTATION RATE 23 mm/hr (0-20)
[2021-05-21 13:42] LABS: ALBUMIN 3.8 GM/DL (3.2-5.2); ALT/SGPT 43 U/L (12-78); BILIRUBIN,TOTAL 0.3 MG/DL (0.2-1.0); BLOOD UREA NITROGEN 17 MG/DL (7-18); CALCIUM LEVEL 9.2 MG/DL (8.5-10.1); CARBON DIOXIDE LEVEL 25 MEQ/L (21-32); CHLORIDE LEVEL 107 MEQ/L (98-107); CREATININE FOR GFR 0.62 MG/DL (0.55-1.30); FOLATE 8.2 NG/ML; GLOMERULAR FILTRATION RATE > 60.0 (>58); GLUCOSE, FASTING 111 MG/DL (70-100); HEPATITIS B SURFACE ANTIBODY NEGATIVE (POSITIVE); HEPATITIS C VIRUS ABY INDEX < 0.0 INDEX (<0.8); POTASSIUM SERUM 4.2 MEQ/L (3.5-5.1); RHEUMATOID FACTOR QUANT < 10.0 IU/ML (<15.0); SODIUM LEVEL 140 MEQ/L (136-145); TOTAL PROTEIN 7.4 GM/DL (6.4-8.2); VITAMIN B12 LEVEL 688 PG/ML
[2021-05-21 14:45] LABS: HEMOGLOBIN A1c 6.8 %
[2021-05-22 09:35] LABS: DRVV SCREEN 38.6 SEC
== END ==
LOC: M LABDRAWC 11:21
PROVIDERS: ATTEND Psychiatry & Neurology Neurology
DX: G35 Multiple sclerosis (principal)

== ENCOUNTER → 2021-08-07 | Outpatient (CLI) | payer OTHER | LOC: M CLY 15:40 | PROVIDERS: ATTEND Nurse Practitioner Family | DX: R05.9 Cough, unspecified (principal) ==

== ENCOUNTER → 2021-09-11 | Outpatient (REF) | payer OTHER ==
[2021-09-11 16:29] LABS: BASO % 0.3 % (0.0-1.0); EOS # 0.2 10^3/uL (0.0-0.5); EOS % 2.4 % (0.0-3.0); HEMOGLOBIN 14.6 g/dl (12.0-15.5); LYMPH # 3.2 10^3/uL (1.5-5.0); LYMPH % 33.8 % (24.0-44.0); MEAN CORPUSCULAR HEMOGLOBIN 28.6 pg (27.0-33.0); MEAN CORPUSCULAR HGB CONC 33.2 g/dl (32.0-36.5); MEAN CORPUSCULAR VOLUME 86.3 fl (80.0-96.0); MONO # 0.7 10^3/uL (0.0-0.8); MONO % 7.2 % (2.0-8.0); NEUTROPHILS # 5.3 10^3/uL (1.5-8.5); NEUTROPHILS % 55.9 % (36.0-66.0); PLATELET COUNT, AUTOMATED 227 10^3/uL (150-450); WHITE BLOOD COUNT 9.6 10^3/uL (4.0-10.0)
[2021-09-11 17:16] LABS: ALBUMIN 3.3 GM/DL (3.2-5.2); ALT/SGPT 47 U/L (12-78); BILIRUBIN,TOTAL 0.4 MG/DL (0.2-1.0); BLOOD UREA NITROGEN 13 MG/DL (7-18); CALCIUM LEVEL 9.5 MG/DL (8.5-10.1); CARBON DIOXIDE LEVEL 26 MEQ/L (21-32); CHLORIDE LEVEL 110 MEQ/L (98-107); CHOLESTEROL LEVEL 210 MG/DL (<200); CHOLESTEROL RISK RATIO 5.675 (<5); CREATININE FOR GFR 0.54 MG/DL (0.55-1.30); FREE T4 0.82 NG/DL (0.76-1.46); GLOMERULAR FILTRATION RATE > 60.0 (>58); GLUCOSE, FASTING 168 MG/DL (70-100); HDL CHOLESTEROL 37 MG/DL (>40); LDL CHOLESTEROL 117 MG/DL (<100); NON-HDL-C 173 MG/DL; SODIUM LEVEL 142 MEQ/L (136-145); TOTAL PROTEIN 7.1 GM/DL (6.4-8.2); TRIGLYCERIDES LEVEL 278 MG/DL (<150)
[2021-09-11 17:42] LABS: MALB URINE SIEMENS 13.9 MG/L; MAU/CREAT RATIO 10.7 MCG/MG (0.0-30.0)
== END ==
LOC: M SFHCCLAY 10:57
PROVIDERS: ATTEND Nurse Practitioner Family
DX: E11.69 Type 2 diabetes mellitus with other specified complication (principal); I10 Essential (primary) hypertension; E78.5 Hyperlipidemia, unspecified; E03.9 Hypothyroidism, unspecified; K21.9 Gastro-esophageal reflux disease without esophagitis; E55.9 Vitamin D deficiency, unspecified; D50.9 Iron deficiency anemia, unspecified

== ENCOUNTER 2021-10-28 19:48 | Inpatient (IN) | payer OTHER ==
[~2021-10-28] VITALS: Ht 167.6 cm; Wt 146.7 kg
[2021-10-28] MEDS ORDERED: ACETAMINOPHEN 325 MG TAB PO ONE (21:10)
[2021-10-28 21:13] LABS: BASO % 0.3 % (0.0-1.0); EOS # 0.1 10^3/uL (0.0-0.5); EOS % 0.9 % (0.0-3.0); HEMATOCRIT 42.3 % (36.0-47.0); HEMOGLOBIN 14.2 g/dl (12.0-15.5); LYMPH # 1.3 10^3/uL (1.5-5.0); MEAN CORPUSCULAR HEMOGLOBIN 28.6 pg (27.0-33.0); MEAN CORPUSCULAR HGB CONC 33.6 g/dl (32.0-36.5); MEAN CORPUSCULAR VOLUME 85.1 fl (80.0-96.0); MONO # 0.7 10^3/uL (0.0-0.8); MONO % 6.1 % (2.0-8.0); NEUTROPHILS # 9.5 10^3/uL (1.5-8.5); NEUTROPHILS % 81.4 % (36.0-66.0); PLATELET COUNT, AUTOMATED 207 10^3/uL (150-450); RED BLOOD COUNT 4.97 10^6/uL (4.00-5.40); WHITE BLOOD COUNT 11.7 10^3/uL (4.0-10.0)
[2021-10-28] MEDS ORDERED: METF500T13 PO (21:13)
[2021-10-28] MEDS ORDERED: LEXA1TAB2 (21:13)
[2021-10-28] MEDS ORDERED: GLAT40IN SQ (21:13)
[2021-10-28 21:49] LABS: ALBUMIN 3.4 GM/DL (3.2-5.2); ALT/SGPT 78 U/L (12-78); BILIRUBIN,DIRECT 0.2 MG/DL (0.0-0.2); BILIRUBIN,TOTAL 0.3 MG/DL (0.2-1.0); BLOOD UREA NITROGEN 9 MG/DL (7-18); CARBON DIOXIDE LEVEL 27 MEQ/L (21-32); CHLORIDE LEVEL 101 MEQ/L (98-107); CREATININE FOR GFR 0.78 MG/DL (0.55-1.30); GLOMERULAR FILTRATION RATE > 60.0 (>58); GLUCOSE, FASTING 314 MG/DL (70-100); NT-PRO BNP 23 PG/ML (<125); POTASSIUM SERUM 4.2 MEQ/L (3.5-5.1); SODIUM LEVEL 138 MEQ/L (136-145); THYROXINE (T4) 6.1 UG/DL (4.5-12.0); TOTAL PROTEIN 7.6 GM/DL (6.4-8.2)
[2021-10-28] MEDS ORDERED: ISOVUE-370 76% 100ML VIAL As Ordered ONE (22:19)
[2021-10-28] MEDS ORDERED: NS 1,000 ML IV ONE (22:20)
[2021-10-28] MEDS ORDERED: IBUPROFEN 600MG TAB PO ONE (22:50)
[2021-10-28] MEDS ORDERED: cefTRIAXone SOD 1 GM in D5W MINI-BAG PLUS 50 ML IV ONE (23:55)
[2021-10-29] MEDS ORDERED: NS 1,000 ML IV ONE (00:30)
[2021-10-29] MEDS ORDERED: ACETAMINOPHEN TAB 650MG DOSE (2X325MG) PO PRN (00:50)
[2021-10-29] MEDS ORDERED: MAALOX 30 ML SUSP *UDC PO PRN (00:50)
[2021-10-29] MEDS ORDERED: MOM 30ML SUSPENSION UDC PO PRN (00:50)
[2021-10-29] MEDS ORDERED: cefTRIAXone SOD 1 GM in D5W MINI-BAG PLUS 50 ML IV ONE (01:05)
[2021-10-29] MEDS ORDERED: GABA-283 PO (01:09)
[2021-10-29] MEDS ORDERED: LEXA1TAB PO (01:09)
[2021-10-29] MEDS ORDERED: ERGO500029 PO (01:09)
[2021-10-29] MEDS ORDERED: TRAZ-257 PO (01:09)
[2021-10-29] MEDS ORDERED: HOME MED LIST COMPLETE! XX SCH ×2 (01:10→05:10)
[2021-10-29] MEDS ORDERED: PROPRANOLOL 10 MG TAB PO PRN (01:15)
[2021-10-29] MEDS: DOXYCYCLINE HYCLATE 100 MG in D5W MINI-BAG PLUS 100 ML IV SCH ×3 (01:44→13:55)
[2021-10-29 04:11] VITALS: BP 128/84
[2021-10-29] MEDS ORDERED: LEVO125T4 PO (05:06)
[2021-10-29] MEDS: LEVOTHYROXINE 125MCG TABLET (0.125MG) PO SCH (05:42)
[2021-10-29] MEDS: HEPARIN SOD (PORCINE) 5000UNITS/ML 1ML VIAL/SYRINGE SC SCH ×3 (05:42→21:17)
[2021-10-29] MEDS ORDERED: LEVOTHYROXINE 88MCG TABLET (0.088 MG) PO SCH (06:00)
[2021-10-29 06:21] LABS: BASO % 0.4 % (0.0-1.0); EOS # 0.2 10^3/uL (0.0-0.5); HEMATOCRIT 36.5 % (36.0-47.0); HEMOGLOBIN 12.3 g/dl (12.0-15.5); LYMPH # 2.5 10^3/uL (1.5-5.0); LYMPH % 31.3 % (24.0-44.0); MEAN CORPUSCULAR HEMOGLOBIN 29.6 pg (27.0-33.0); MEAN CORPUSCULAR HGB CONC 33.7 g/dl (32.0-36.5); MONO # 0.6 10^3/uL (0.0-0.8); MONO % 7.3 % (2.0-8.0); NEUTROPHILS # 4.7 10^3/uL (1.5-8.5); NEUTROPHILS % 58.6 % (36.0-66.0); PLATELET COUNT, AUTOMATED 176 10^3/uL (150-450); RED BLOOD COUNT 4.15 10^6/uL (4.00-5.40)
[2021-10-29 06:43] LABS: ALBUMIN 2.8 GM/DL (3.2-5.2); ALT/SGPT 54 U/L (12-78); BILIRUBIN,TOTAL 0.4 MG/DL (0.2-1.0); BLOOD UREA NITROGEN 11 MG/DL (7-18); C REACTIVE PROTEIN QUANTITATIV 6.29 MG/DL (0.00-0.30); CALCIUM LEVEL 8.3 MG/DL (8.5-10.1); CARBON DIOXIDE LEVEL 28 MEQ/L (21-32); CHLORIDE LEVEL 104 MEQ/L (98-107); CREATININE FOR GFR 0.62 MG/DL (0.55-1.30); GLOMERULAR FILTRATION RATE > 60.0 (>58); GLUCOSE, FASTING 201 MG/DL (70-100); MAGNESIUM LEVEL 1.7 MG/DL (1.8-2.4); POTASSIUM SERUM 3.1 MEQ/L (3.5-5.1); SODIUM LEVEL 139 MEQ/L (136-145); TOTAL PROTEIN 6.6 GM/DL (6.4-8.2)
[2021-10-29] MEDS: OMEPRAZOLE 20MG CAP PO SCH ×2 (08:26→21:18)
[2021-10-29] MEDS: ESCITALOPRAM OXALATE 10 MG TAB (LEXAPRO) PO SCH ×2 (08:26→08:27)
[2021-10-29] MEDS: metFORMIN (GLUCOPHAGE) 500MG TAB PO SCH ×2 (08:26→16:54)
[2021-10-29] MEDS: FERROUS SULFATE 325MG TAB PO SCH ×3 (08:27→21:19)
[2021-10-29] MEDS: GABAPENTIN 400MG CAP PO SCH ×3 (08:27→21:19)
[2021-10-29] MEDS: LORATADINE 10 MG TAB PO SCH (08:27)
[2021-10-29] MEDS ORDERED: ZONISAMIDE 25MG CAP (ZONEGRAN) PO SCH (09:00)
[2021-10-29] MEDS ORDERED: POTASSIUM CHLORIDE 10MEQ SR TABLET PO ONE ×2 (09:15→11:15)
[2021-10-29] MEDS ORDERED: MAG SULF 1GM/100ML (MAG RUN) 1 GM in IV 1 EA IV ONE (09:15)
[2021-10-29] MEDS ORDERED: ZONISAMIDE 50 MG CAP (ZONEGRAN) PO SCH (09:20)
[2021-10-29] MEDS: FLUTICASONE PROP 0.05% NASAL SPRAY 16 GM (FLONASE) SCH (11:30)
[2021-10-29 12:25] LABS: ERYTHROCYTE SEDIMENTATION RATE 35 mm/hr (0-20)
[2021-10-29 14:00] VITALS: BP 127/83
[2021-10-29] MEDS ORDERED: cefTRIAXone SOD 1 GM in D5W MINI-BAG PLUS 50 ML IV SCH (21:00)
[2021-10-29] MEDS: traZODone 100 MG TAB PO SCH ×2 (21:18→22:22)
[2021-10-29] MEDS: ZONISAMIDE 50 MG CAP (ZONEGRAN) PO SCH (21:18)
[2021-10-29 21:22] VITALS: BP 129/84
[2021-10-30] MEDS: DOXYCYCLINE HYCLATE 100 MG in D5W MINI-BAG PLUS 100 ML IV SCH ×2 (01:13→12:10)
[2021-10-30] MEDS: LEVOTHYROXINE 125MCG TABLET (0.125MG) PO SCH (05:28)
[2021-10-30] MEDS: HEPARIN SOD (PORCINE) 5000UNITS/ML 1ML VIAL/SYRINGE SC SCH ×3 (05:29→22:00)
[2021-10-30 06:00] VITALS: BP 129/84
[2021-10-30] MEDS: OMEPRAZOLE 20MG CAP PO SCH ×2 (08:28→22:16)
[2021-10-30] MEDS: ZONISAMIDE 50 MG CAP (ZONEGRAN) PO SCH ×2 (08:28→22:16)
[2021-10-30] MEDS: ESCITALOPRAM OXALATE 10 MG TAB (LEXAPRO) PO SCH ×2 (08:28→08:29)
[2021-10-30] MEDS: metFORMIN (GLUCOPHAGE) 500MG TAB PO SCH ×2 (08:28→16:50)
[2021-10-30] MEDS: FERROUS SULFATE 325MG TAB PO SCH ×3 (08:29→22:16)
[2021-10-30] MEDS: GABAPENTIN 400MG CAP PO SCH ×3 (08:29→22:16)
[2021-10-30] MEDS: LORATADINE 10 MG TAB PO SCH (08:29)
[2021-10-30] MEDS ORDERED: GLATIRAMER 40 MG/ML SC SCH (09:00)
[2021-10-30 11:03] LABS: HEMATOCRIT 37.4 % (36.0-47.0); HEMOGLOBIN 12.3 g/dl (12.0-15.5); MEAN CORPUSCULAR HEMOGLOBIN 29.1 pg (27.0-33.0); MEAN CORPUSCULAR HGB CONC 32.9 g/dl (32.0-36.5); MEAN CORPUSCULAR VOLUME 88.6 fl (80.0-96.0); PLATELET COUNT, AUTOMATED 177 10^3/uL (150-450); RED BLOOD COUNT 4.22 10^6/uL (4.00-5.40); WHITE BLOOD COUNT 6.4 10^3/uL (4.0-10.0)
[2021-10-30 11:39] LABS: BLOOD UREA NITROGEN 9 MG/DL (7-18); CALCIUM LEVEL 9.3 MG/DL (8.5-10.1); CARBON DIOXIDE LEVEL 27 MEQ/L (21-32); CHLORIDE LEVEL 106 MEQ/L (98-107); CREATININE FOR GFR 0.57 MG/DL (0.55-1.30); GLOMERULAR FILTRATION RATE > 60.0 (>58); GLUCOSE, FASTING 253 MG/DL (70-100); SODIUM LEVEL 140 MEQ/L (136-145)
[2021-10-30] MEDS: FLUTICASONE PROP 0.05% NASAL SPRAY 16 GM (FLONASE) SCH (12:09)
[2021-10-30 14:00] VITALS: BP 122/84
[2021-10-30 22:00] VITALS: BP 125/84
[2021-10-30] MEDS: traZODone 100 MG TAB PO SCH (22:15)
[2021-10-31] MEDS: DOXYCYCLINE HYCLATE 100 MG in D5W MINI-BAG PLUS 100 ML IV SCH ×2 (01:53→13:19)
[2021-10-31 06:00] VITALS: BP 128/86
[2021-10-31] MEDS: HEPARIN SOD (PORCINE) 5000UNITS/ML 1ML VIAL/SYRINGE SC SCH ×2 (06:00→13:19)
[2021-10-31] MEDS: LEVOTHYROXINE 125MCG TABLET (0.125MG) PO SCH (06:11)
[2021-10-31 06:57] LABS: HEMOGLOBIN 12.4 g/dl (12.0-15.5); MEAN CORPUSCULAR HEMOGLOBIN 28.6 pg (27.0-33.0); MEAN CORPUSCULAR HGB CONC 32.6 g/dl (32.0-36.5); MEAN CORPUSCULAR VOLUME 87.8 fl (80.0-96.0); PLATELET COUNT, AUTOMATED 163 10^3/uL (150-450); RED BLOOD COUNT 4.33 10^6/uL (4.00-5.40); WHITE BLOOD COUNT 7.1 10^3/uL (4.0-10.0)
[2021-10-31 07:23] LABS: BLOOD UREA NITROGEN 8 MG/DL (7-18); CALCIUM LEVEL 8.6 MG/DL (8.5-10.1); CARBON DIOXIDE LEVEL 28 MEQ/L (21-32); CHLORIDE LEVEL 107 MEQ/L (98-107); CREATININE FOR GFR 0.66 MG/DL (0.55-1.30); GLOMERULAR FILTRATION RATE > 60.0 (>58); GLUCOSE, FASTING 249 MG/DL (70-100); POTASSIUM SERUM 4.1 MEQ/L (3.5-5.1); SODIUM LEVEL 141 MEQ/L (136-145)
[2021-10-31] MEDS: ZONISAMIDE 50 MG CAP (ZONEGRAN) PO SCH (08:47)
[2021-10-31] MEDS: metFORMIN (GLUCOPHAGE) 500MG TAB PO SCH (08:48)
[2021-10-31] MEDS: GABAPENTIN 400MG CAP PO SCH (08:48)
[2021-10-31] MEDS: OMEPRAZOLE 20MG CAP PO SCH (08:48)
[2021-10-31] MEDS: ESCITALOPRAM OXALATE 10 MG TAB (LEXAPRO) PO SCH ×2 (08:48→08:49)
[2021-10-31] MEDS: LORATADINE 10 MG TAB PO SCH (08:49)
[2021-10-31] MEDS: FERROUS SULFATE 325MG TAB PO SCH (08:49)
[2021-10-31 08:50] VITALS: BP 129/86
[2021-10-31 10:59] LABS: MONO REFLEX EBV COMP NEGATIVE (NEGATIVE)
[2021-10-31] MEDS: FLUTICASONE PROP 0.05% NASAL SPRAY 16 GM (FLONASE) SCH (13:19)
[2021-10-31 14:00] VITALS: BP 124/73
[2021-10-31] MEDS ORDERED: DOXY100T PO (14:06)
[2021-10-31] MEDS ORDERED: DOXYCYCLINE HYCLATE 100MG TABLET PO SCH (21:00)
[2021-11-01 17:07] LABS: EBV VIRAL CAPSID AG IgG >600.0 U/mL (0.0-17.9); EBV VIRAL CAPSID AG IgM <36.0 U/mL (0.0-35.9)
== END 2021-10-31 15:31 | disposition home or self-care (01) | DRG 720 ==
LOC: M ED 19:48 → EDBD 19:48 → M ED INP 10-29 00:48 → M MSPAV 10-29 03:59
PROVIDERS: ADMIT Family Medicine; ATTEND Internal Medicine
PROC: B246ZZZ Ultrasonography of Right and Left Heart (ICD-10-PCS; principal; 2021-10-29)
DX: A41.9 Sepsis, unspecified organism (principal); E11.42 Type 2 diabetes mellitus with diabetic polyneuropathy; G35 Multiple sclerosis; E83.42 Hypomagnesemia; Z68.42 Body mass index [BMI] 45.0-49.9, adult; G43.909 Migraine, unspecified, not intractable, without status migrainosus; M54.9 Dorsalgia, unspecified; G89.29 Other chronic pain; I10 Essential (primary) hypertension; K21.9 Gastro-esophageal reflux disease without esophagitis; F32.A Depression, unspecified; F41.9 Anxiety disorder, unspecified; E03.9 Hypothyroidism, unspecified; D50.9 Iron deficiency anemia, unspecified; F40.00 Agoraphobia, unspecified; Z90.49 Acquired absence of other specified parts of digestive tract; E87.6 Hypokalemia; Z20.822 Contact with and (suspected) exposure to COVID-19; E66.9 Obesity, unspecified

== ENCOUNTER → 2022-05-20 | Outpatient (REF) | payer OTHER ==
[~2022-05-20] MED LIST changes: +DOXY100T PO; +ERGO500029 PO; +GLAT40IN SQ; +LEVO125T4 PO; +LEXA1TAB PO; +LEXA1TAB2; +METF500T13 PO; +TRAZ-257 PO
[2022-05-20 12:24] LABS: BLOOD UREA NITROGEN 12 MG/DL (9-23); CALCIUM LEVEL 8.8 MG/DL (8.5-10.1); CARBON DIOXIDE LEVEL 28 MMOL/L (20-31); CHLORIDE LEVEL 103 MMOL/L (98-107); CREATININE FOR GFR 0.47 MG/DL (0.55-1.30); GLOMERULAR FILTRATION RATE > 60.0 (>58); GLUCOSE, FASTING 210 MG/DL (60-100); POTASSIUM SERUM 4.1 MMOL/L (3.5-5.1); SODIUM LEVEL 139 MMOL/L (136-145)
[2022-05-20 13:11] LABS: HEMOGLOBIN A1c 9.8 % (4.0-6.0)
== END ==
LOC: M SFHCCLAY 09:04
PROVIDERS: ATTEND Nurse Practitioner Family
DX: E11.69 Type 2 diabetes mellitus with other specified complication (principal)

== ENCOUNTER → 2022-09-29 | Outpatient (REF) | payer OTHER ==
[~2022-09-29] MED LIST changes: +TOPI-254 PO; -TOPI50TA9 PO
[2022-09-29 12:03] LABS: FREE T4 0.86 NG/DL (0.89-1.76); THYROID STIMULATING HORMONE 9.366 uIU/ML (0.55-4.78)
[2022-09-29 12:05] LABS: ALBUMIN 3.5 G/DL (3.2-5.2); ALKALINE PHOSPHATASE 123 U/L (46-116); ALT/SGPT 48 U/L (7.0-40); AST/SGOT 44 U/L (<34); BILIRUBIN,TOTAL 0.5 MG/DL (0.3-1.2); BLOOD UREA NITROGEN 12 MG/DL (9-23); CALCIUM LEVEL 8.6 MG/DL (8.5-10.1); CARBON DIOXIDE LEVEL 26 MMOL/L (20-31); CHLORIDE LEVEL 104 MMOL/L (98-107); CREATININE FOR GFR 0.62 MG/DL (0.55-1.30); GLOMERULAR FILTRATION RATE > 60.0 (>58); GLUCOSE, FASTING 159 MG/DL (60-100); POTASSIUM SERUM 3.7 MMOL/L (3.5-5.1); SODIUM LEVEL 138 MMOL/L (136-145)
[2022-09-29 12:22] LABS: HEMOGLOBIN A1c 7.6 % (4.0-6.0)
== END ==
LOC: M SFHCCLAY 08:29
PROVIDERS: ATTEND Nurse Practitioner Family
DX: E11.69 Type 2 diabetes mellitus with other specified complication (principal); E03.9 Hypothyroidism, unspecified

== ENCOUNTER → 2022-10-08 | Outpatient (CLI) | payer OTHER | LOC: M CLY 14:20 | PROVIDERS: ATTEND Nurse Practitioner Family | DX: M79.671 Pain in right foot (principal); M79.89 Other specified soft tissue disorders ==

== ENCOUNTER → 2023-07-01 | Outpatient (CLI) | payer OTHER ==
[~2023-07-01] MED LIST changes: -GABA-283 PO; +GABA-284 PO; +LORA-1041 PO; -LORA-674 PO; +TOPI-21 PO; -TOPI-254 PO
== END ==
LOC: M CLY 14:52
PROVIDERS: ATTEND Nurse Practitioner Family
DX: T17.900A Unspecified foreign body in respiratory tract, part unspecified causing asphyxiation, initial encounter (principal); Y92.9 Unspecified place or not applicable

== ENCOUNTER 2023-09-14 09:29 | Day surgery (SDC) | payer OTHER ==
[~2023-09-14] VITALS: Ht 167.6 cm; Wt 142.8 kg
[~2023-09-14 09:29] MED LIST changes: +CYCL-707 PO; +LEVO150C PO; -LEXA1TAB2; +LEXA1TAB2 PO; +PANT40TA29 PO; +POLY510P14 PO; +PROP20TA GT; +RIZA5TAB52 PO; +ZONI100C67 PO
[2023-09-14] MEDS: NS 1,000 ML IV ONE (10:17)
[2023-09-14] MEDS ORDERED: MIDAZOLAM INJ 2MG/2ML VIAL As Ordered ONE (11:08)
[2023-09-14] MEDS ORDERED: propofoL 200 MG/20 ML VIAL As Ordered ONE (11:29)
[2023-09-14 11:49] VITALS: TEMP 98.6
[2023-09-14 12:09] VITALS: BP 138/82; O2SAT 94
== END 2023-09-14 12:19 | disposition home or self-care (01) ==
LOC: M OPP 09:29
PROVIDERS: ATTEND Internal Medicine Gastroenterology
DX: Z12.11 Encounter for screening for malignant neoplasm of colon (principal); Z12.12 Encounter for screening for malignant neoplasm of rectum; D12.7 Benign neoplasm of rectosigmoid junction; D12.4 Benign neoplasm of descending colon; D12.3 Benign neoplasm of transverse colon; D12.2 Benign neoplasm of ascending colon; K57.30 Diverticulosis of large intestine without perforation or abscess without bleeding; K64.8 Other hemorrhoids; K64.4 Residual hemorrhoidal skin tags; R13.10 Dysphagia, unspecified; K29.70 Gastritis, unspecified, without bleeding; K21.9 Gastro-esophageal reflux disease without esophagitis; D64.9 Anemia, unspecified; E11.9 Type 2 diabetes mellitus without complications; I10 Essential (primary) hypertension; E03.9 Hypothyroidism, unspecified; Z79.899 Other long term (current) drug therapy; Z79.84 Long term (current) use of oral hypoglycemic drugs; Z79.890 Hormone replacement therapy; G47.30 Sleep apnea, unspecified; G35 Multiple sclerosis; E66.9 Obesity, unspecified; Z90.710 Acquired absence of both cervix and uterus; Z88.6 Allergy status to analgesic agent
CPT/HCPCS: 43239; 45385; 88305; J2250

== ENCOUNTER → 2024-01-19 | Outpatient (REF) | payer OTHER ==
[2024-01-19 18:33] LABS: CREATININE, URINE 74.7 MG/DL; MALB URINE SIEMENS < 3.0 MG/L
[2024-01-19 18:36] LABS: HEMOGLOBIN A1c 10.6 % (4.0-6.0)
[2024-01-19 18:37] LABS: CHOLESTEROL RISK RATIO 5.06 (<5); HDL CHOLESTEROL 37.7 MG/DL (>40); LDL CHOLESTEROL 88.1 MG/DL (<100); NON-HDL-C 153.3 MG/DL
[2024-01-19 18:38] LABS: FREE T4 1.05 NG/DL (0.89-1.76); THYROID STIMULATING HORMONE 3.986 uIU/ML (0.55-4.78)
== END ==
LOC: M SFHCCLAY 11:17
PROVIDERS: ATTEND Nurse Practitioner Family
DX: E11.69 Type 2 diabetes mellitus with other specified complication (principal); I10 Essential (primary) hypertension; E78.5 Hyperlipidemia, unspecified; E03.9 Hypothyroidism, unspecified; K21.9 Gastro-esophageal reflux disease without esophagitis; E55.9 Vitamin D deficiency, unspecified; D50.9 Iron deficiency anemia, unspecified

== ENCOUNTER → 2024-01-19 | Outpatient (REF) | payer OTHER ==
[2024-01-19 18:31] LABS: BASO # 0.1 10^3/uL (0.0-0.2); BASO % 0.6 % (0.0-1.0); EOS # 0.2 10^3/uL (0.0-0.5); EOS % 2.3 % (0.0-3.0); HEMATOCRIT 40.1 % (36.0-47.0); HEMOGLOBIN 13.8 g/dl (12.0-15.5); LYMPH # 2.7 10^3/uL (1.5-5.0); LYMPH % 30.8 % (24.0-44.0); MEAN CORPUSCULAR HEMOGLOBIN 29.4 pg (27.0-33.0); MEAN CORPUSCULAR HGB CONC 34.4 g/dl (32.0-36.5); MEAN CORPUSCULAR VOLUME 85.3 fl (80.0-96.0); MONO # 0.5 10^3/uL (0.0-0.8); NEUTROPHILS # 5.2 10^3/uL (1.5-8.5); NEUTROPHILS % 59.8 % (36.0-66.0); PLATELET COUNT, AUTOMATED 191 10^3/uL (150-450); WHITE BLOOD COUNT 8.7 10^3/uL (4.0-10.0)
[2024-01-19 18:58] LABS: ALBUMIN 3.4 G/DL (3.2-5.2); ALKALINE PHOSPHATASE 148 U/L (46-116); ALT/SGPT 43 U/L (7.0-40); AST/SGOT 35 U/L (<34); BILIRUBIN,TOTAL 0.4 MG/DL (0.3-1.2); BLOOD UREA NITROGEN 12 MG/DL (9-23); CALCIUM LEVEL 8.9 MG/DL (8.5-10.1); CARBON DIOXIDE LEVEL 25 MMOL/L (20-31); CHLORIDE LEVEL 101 MMOL/L (98-107); CPK CREATINE PHOSPHOKINASE 73 U/L (34-145); CREATININE FOR GFR 0.41 MG/DL (0.55-1.30); GLOMERULAR FILTRATION RATE > 60.0 (>58); GLUCOSE, FASTING 346 MG/DL (60-100); POTASSIUM SERUM 4.3 MMOL/L (3.5-5.1); SODIUM LEVEL 132 MMOL/L (136-145); TOTAL PROTEIN 7.1 G/DL (5.7-8.2)
[2024-01-19 19:00] LABS: VITAMIN B12 LEVEL 595 PG/ML (211-911)
[2024-01-22 09:43] LABS: ANA PATTERN Cytoplasmic (NEGATIVE); ANA SCREEN, IFA POSITIVE (NEGATIVE)
[2024-01-24 13:27] LABS: SSA SJOGRENS A <1.0 NEG AI (<1.0 NEG); SSB SJOGRENS B <1.0 NEG AI (<1.0 NEG)
[2024-01-24 20:53] LABS: EHRLICHIA CAFFEENSIS IGM <1:20 (<1:20)
[2024-01-25 00:08] LABS: CARDIOLIPIN IGA ANTIBODY 4.2 APL-U/mL (<20.0); CARDIOLIPIN IGG ANTIBODY < 2.0 GPL-U/mL (<20.0); CARDIOLIPIN IGM ANTIBODY < 2.0 MPL-U/mL (<20.0)
== END ==
LOC: M LABDRAWC 17:34
PROVIDERS: ATTEND Psychiatry & Neurology Neurology
DX: G35 Multiple sclerosis (principal); R90.82 White matter disease, unspecified

== ENCOUNTER → 2024-05-29 | Outpatient (REF) | payer MEDICAID, OTHER ==
[2024-05-29 18:05] LABS: ALBUMIN 3.4 G/DL (3.2-5.2); ALKALINE PHOSPHATASE 134 U/L (35-104); ALT/SGPT 43 U/L (7.0-40); AST/SGOT 44 U/L (<34); BILIRUBIN,TOTAL 0.6 MG/DL (0.3-1.2); BLOOD UREA NITROGEN 11 MG/DL (9-23); CALCIUM LEVEL 8.6 MG/DL (8.5-10.1); CARBON DIOXIDE LEVEL 27 MMOL/L (20-31); CHLORIDE LEVEL 107 MMOL/L (98-107); CREATININE FOR GFR 0.55 MG/DL (0.55-1.30); GLOMERULAR FILTRATION RATE > 60.0 (>58); GLUCOSE, FASTING 111 MG/DL (60-100); POTASSIUM SERUM 4.6 MMOL/L (3.5-5.1); SODIUM LEVEL 143 MMOL/L (136-145); TOTAL PROTEIN 7.3 G/DL (5.7-8.2)
[2024-05-29 18:38] LABS: HEMOGLOBIN A1c 6.3 % (4.0-6.0)
== END ==
LOC: M SFHCCLAY 12:35
PROVIDERS: ATTEND Nurse Practitioner Family
DX: E11.69 Type 2 diabetes mellitus with other specified complication (principal)

== ENCOUNTER 2024-08-21 08:41 | Day surgery (SDC) | payer MEDICAID, OTHER ==
[~2024-08-21] VITALS: Ht 167.6 cm; Wt 145.1 kg
[~2024-08-21 08:41] MED LIST changes: +AJOV225I SC; +ALL10TAB2 PO; +BACL10TA2 PO; +LIDOCAINE W/EPINEPHRINE 1% 20ML VIAL XX ONE; +OMEP-173 PO; +OXYB15TA14 PO; -PROP20TA GT; +PROP20TA PO; +SEMA2PEN SQ; +SODIUM BICARBONATE 8.4% INJ 50MEQ 50ML VIAL XX ONE
[2024-08-21 10:58] VITALS: BP 128/74; TEMP 98.1; O2SAT 98
[2024-08-21] MEDS: BACITRACIN OINTMENT 30GM TUBE As Ordered ONE (11:00)
== END 2024-08-21 11:21 | disposition home or self-care (01) ==
LOC: M SDC 08:41
PROVIDERS: ATTEND Orthopaedic Surgery Hand Surgery
DX: M65.351 Trigger finger, right little finger (principal); I10 Essential (primary) hypertension; E11.9 Type 2 diabetes mellitus without complications; E03.9 Hypothyroidism, unspecified; K21.9 Gastro-esophageal reflux disease without esophagitis; K59.00 Constipation, unspecified; D64.9 Anemia, unspecified; G35 Multiple sclerosis; F41.9 Anxiety disorder, unspecified; F32.A Depression, unspecified; G43.909 Migraine, unspecified, not intractable, without status migrainosus; G47.33 Obstructive sleep apnea (adult) (pediatric); Z79.899 Other long term (current) drug therapy

== ENCOUNTER → 2024-08-30 | Outpatient (REF) | payer OTHER ==
[~2024-08-30] MED LIST changes: -LIDOCAINE W/EPINEPHRINE 1% 20ML VIAL XX ONE; -SODIUM BICARBONATE 8.4% INJ 50MEQ 50ML VIAL XX ONE
[2024-08-30 12:58] LABS: ALBUMIN 3.3 G/DL (3.2-5.2); ALKALINE PHOSPHATASE 115 U/L (35-104); ALT/SGPT 41 U/L (7.0-40); AST/SGOT 37 U/L (<34); BILIRUBIN,TOTAL 0.5 MG/DL (0.3-1.2); BLOOD UREA NITROGEN 13 MG/DL (9-23); CALCIUM LEVEL 8.6 MG/DL (8.5-10.1); CARBON DIOXIDE LEVEL 27 MMOL/L (20-31); CHLORIDE LEVEL 106 MMOL/L (98-107); CREATININE FOR GFR 0.49 MG/DL (0.55-1.30); GLOMERULAR FILTRATION RATE > 90.0 (>58); GLUCOSE, FASTING 122 MG/DL (60-100); POTASSIUM SERUM 4.2 MMOL/L (3.5-5.1); SODIUM LEVEL 140 MMOL/L (136-145); TOTAL PROTEIN 6.8 G/DL (5.7-8.2)
[2024-08-30 12:59] LABS: FREE T4 1.23 NG/DL (0.89-1.76); THYROID STIMULATING HORMONE 0.806 uIU/ML (0.55-4.78)
[2024-08-30 13:00] LABS: HEMOGLOBIN A1c 5.2 % (4.0-6.0)
== END ==
LOC: M SFHCCLAY 07:32
PROVIDERS: ATTEND Nurse Practitioner Family
DX: E11.69 Type 2 diabetes mellitus with other specified complication (principal); E03.9 Hypothyroidism, unspecified

== ENCOUNTER → 2024-08-30 | Outpatient (REF) | payer OTHER ==
[~2024-08-30] MED LIST changes: +KETO120S5 TOP; -KETO2SHA8 TOP; -LEVO150C PO; +LEVO150C2 PO; +TOPI-14 PO; -TOPI200T7 PO
[2024-08-30 13:26] LABS: BASO % 0.4 % (0.0-1.0); EOS # 0.3 10^3/uL (0.0-0.5); EOS % 4.3 % (0.0-3.0); HEMOGLOBIN 13.1 g/dl (12.0-15.5); LYMPH # 0.7 10^3/uL (1.5-5.0); LYMPH % 10.5 % (24.0-44.0); MEAN CORPUSCULAR HEMOGLOBIN 29.2 pg (27.0-33.0); MEAN CORPUSCULAR HGB CONC 32.8 g/dl (32.0-36.5); MEAN CORPUSCULAR VOLUME 89.3 fl (80.0-96.0); MONO # 0.6 10^3/uL (0.0-0.8); NEUTROPHILS # 5.1 10^3/uL (1.5-8.5); NEUTROPHILS % 75.7 % (36.0-66.0); PLATELET COUNT, AUTOMATED 194 10^3/uL (150-450); RED BLOOD COUNT 4.48 10^6/uL (4.00-5.40); WHITE BLOOD COUNT 6.7 10^3/uL (4.0-10.0)
== END ==
LOC: M LABDRAWC 12:27
PROVIDERS: ATTEND Psychiatry & Neurology Neurology
DX: G35 Multiple sclerosis (principal)

== ENCOUNTER → 2024-09-06 | Outpatient (REF) | payer OTHER ==
[2024-09-06 18:10] LABS: AMORPHOUS SEDIMENT SMALL (NEGATIVE); APPEARANCE, URINE TURBID (CLEAR); BACTERIA, URINE AUTO 3+ (NEGATIVE); BILIRUBIN, URINE AUTO NEGATIVE (NEGATIVE); BLOOD, URINE BLOOD 1+ (NEGATIVE); COLOR, URINE AMBER (YELLOW); GLUCOSE, URINE (UA) AUTO NEGATIVE (NEGATIVE); KETONE, URINE AUTO NEGATIVE (NEGATIVE); LEUKOCYTE ESTERASE, URINE AUTO 3+ (NEGATIVE); MUCUS, URINE SMALL (NEGATIVE); NITRITE, URINE AUTO NEGATIVE (NEGATIVE); PROTEIN, URINE AUTO NEGATIVE (NEGATIVE); RBC, URINE AUTO 50 /HPF (0-3); SQUAMOUS EPITHELIAL CELL UR AU 45 /HPF (0-6); UROBILINOGEN, URINE AUTO 0.2 mg/dL (0.0-2.0); WBC, URINE AUTO 56 /HPF (0-3)
== END ==
LOC: M SFHCCLAY 10:59
PROVIDERS: ATTEND Nurse Practitioner Family
DX: R30.0 Dysuria (principal)

== ENCOUNTER → 2024-11-01 | Outpatient (CLI) | payer OTHER | LOC: M CLY 15:00 | PROVIDERS: ATTEND Physician Assistant | DX: R30.0 Dysuria (principal); S92.912A Unspecified fracture of left toe(s), initial encounter for closed fracture ==

== ENCOUNTER → 2025-01-01 | Outpatient (REF) | payer OTHER ==
[2025-01-01 19:14] LABS: BASO # 0.0 10^3/uL (0.0-0.2); BASO % 0.5 % (0.0-1.0); EOS # 0.4 10^3/uL (0.0-0.5); EOS % 6.3 % (0.0-3.0); LYMPH # 0.5 10^3/uL (1.5-5.0); LYMPH % 8.6 % (24.0-44.0); MONO # 0.5 10^3/uL (0.0-0.8); MONO % 7.8 % (2.0-8.0); NEUTROPHILS # 4.7 10^3/uL (1.5-8.5); NEUTROPHILS % 76.3 % (36.0-66.0); PLATELET COUNT, AUTOMATED 195 10^3/uL (150-450)
[2025-01-06 17:38] LABS: LYME TOTAL ANTIBODY CIA <= 0.90 Index (<=0.90)
== END ==
LOC: M LABDRAWC 17:08
PROVIDERS: ATTEND Psychiatry & Neurology Neurology
DX: G35 Multiple sclerosis (principal); R90.82 White matter disease, unspecified

== ENCOUNTER → 2025-01-01 | Outpatient (REF) | payer OTHER ==
[2025-01-01 19:35] LABS: ALT/SGPT 43 U/L (7.0-40); AST/SGOT 42 U/L (<34); CALCIUM LEVEL 8.8 MG/DL (8.5-10.1); CARBON DIOXIDE LEVEL 29 MMOL/L (20-31); CHLORIDE LEVEL 106 MMOL/L (98-107); CREATININE FOR GFR 0.54 MG/DL (0.55-1.30); GLOMERULAR FILTRATION RATE > 90.0 (>58); POTASSIUM SERUM 4.3 MMOL/L (3.5-5.1); SODIUM LEVEL 143 MMOL/L (136-145)
[2025-01-01 19:37] LABS: FREE T4 1.19 NG/DL (0.89-1.76)
[2025-01-01 19:44] LABS: ESTIMATED AVERAGE GLUCOSE 117.0 MG/DL (60-110)
== END ==
LOC: M SFHCCLAY 13:11
PROVIDERS: ATTEND Nurse Practitioner Family
DX: E11.69 Type 2 diabetes mellitus with other specified complication (principal); E03.9 Hypothyroidism, unspecified

== ENCOUNTER 2025-03-16 10:31 | Emergency (ER) | payer OTHER ==
[~2025-03-16] VITALS: Ht 167.6 cm; Wt 144.8 kg
[2025-03-16 11:22] LABS: BASO # 0.0 10^3/uL (0.0-0.2); BASO % 0.3 % (0.0-1.0); EOS # 0.2 10^3/uL (0.0-0.5); EOS % 3.7 % (0.0-3.0); LYMPH # 0.5 10^3/uL (1.5-5.0); LYMPH % 7.6 % (24.0-44.0); MONO # 0.5 10^3/uL (0.0-0.8); MONO % 7.8 % (2.0-8.0); NEUTROPHILS # 4.7 10^3/uL (1.5-8.5); NEUTROPHILS % 80.3 % (36.0-66.0); PLATELET COUNT, AUTOMATED 158 10^3/uL (150-450)
[2025-03-16 11:47] LABS: ALT/SGPT 42 U/L (7.0-40); AST/SGOT 43 U/L (<34); CALCIUM LEVEL 8.0 MG/DL (8.5-10.1); CARBON DIOXIDE LEVEL 28 MMOL/L (20-31); CHLORIDE LEVEL 104 MMOL/L (98-107); CREATININE FOR GFR 0.68 MG/DL (0.55-1.30); GLOMERULAR FILTRATION RATE > 90.0 (>58); POTASSIUM SERUM 4.6 MMOL/L (3.5-5.1); SODIUM LEVEL 141 MMOL/L (136-145)
[2025-03-16 11:50] LABS: CK-MB VALUE MASS 1.0 NG/ML (<3.6)
[2025-03-16 11:54] LABS: FREE T4 1.09 NG/DL (0.89-1.76)
[2025-03-16 11:55] LABS: INR 1.1
[2025-03-16 12:15] LABS: HCG, SERUM QUALITATIVE NEGATIVE (NEGATIVE)
[2025-03-16 12:18] LABS: CPK CREATINE PHOSPHOKINASE 91 U/L (34-145); MB/CK RELATIVE INDEX 1.09 (< OR =4)
[2025-03-16 13:03] LABS: CK-MB VALUE MASS < 1.0 NG/ML (<3.6)
[2025-03-16 13:06] LABS: CPK CREATINE PHOSPHOKINASE 91 U/L (34-145)
[2025-03-16] MEDS ORDERED: ISOVUE-370 76% 100 ML VIAL As Ordered ONE (14:07)
[2025-03-16] MEDS ORDERED: ESOM20CA25 PO (14:25)
[2025-03-16] MEDS ORDERED: GABA-1490 PO (14:25)
[2025-03-16] MEDS ORDERED: TECF240C PO (14:25)
[2025-03-16] MEDS ORDERED: ESTR3TA PO (14:25)
[2025-03-16] MEDS ORDERED: PROP20TA72 PO (14:25)
[2025-03-16] MEDS ORDERED: HOME MED LIST COMPLETE! XX SCH (14:30)
[2025-03-16] MEDS: NS (Normal Saline) 0.9% 1,000 ML IV SCH (14:53)
[2025-03-16] MEDS: ACETAMINOPHEN 325 MG TAB PO ONE (14:53)
[2025-03-16] MEDS: MORPHINE 4 MG/ML 1 ML VIAL IV PRN (14:54)
[2025-03-16 15:22] LABS: KETONE, URINE AUTO RFX TRACE mg/dL (NEGATIVE); MUCUS, URINE RFX SMALL (NEGATIVE); NITRITE, URINE AUTO RFX NEGATIVE (NEGATIVE); RBC, URINE AUTO RFX 0 /HPF (0-3); SQUAM EPITHELIAL CELL UR AURFX 5 /HPF (0-6); TRANSITIONAL EPITHELIAL AU RFX <1 /HPF; WBC, URINE AUTO RFX 1 /HPF (0-3)
[2025-03-16 15:25] LABS: LEUKOCYTE ESTERASE UR AUTO RFX TRACE (NEGATIVE)
[2025-03-16 16:37] VITALS: BP 99/71; TEMP 98.3; O2SAT 96
== END 2025-03-16 16:40 | disposition home or self-care (01) ==
LOC: M ED 10:31
DX: R07.9 Chest pain, unspecified (principal); E11.40 Type 2 diabetes mellitus with diabetic neuropathy, unspecified; I10 Essential (primary) hypertension; G35.D Multiple sclerosis, unspecified; Z79.4 Long term (current) use of insulin; Z79.899 Other long term (current) drug therapy; Z88.6 Allergy status to analgesic agent
CPT/HCPCS: 71045; 71275; 74177; 80047; 80048; 80076; 81001; 82550; 82553; 83690; 84439; 84443; 84484; 84703; 85025; 85610; 85730; 87086; 87486; 87581; 87633; 87798; 93005; 93041; 94760; 96361; 96374; 99285; Q9967